=== PATIENT | female | born 1950 | race Hispanic/Latino ===

== ENCOUNTER 2018-11-06 19:01 | Emergency (ER) | payer MEDICARE ==
--- NOTE | 2018-11-06 20:39 | Emergency Department Report ---
ED General Adult HPI - General Chief complaint: Skin Rash Stated complaint: BLISTERS (L) SIDE BODY Time Seen by Provider: 11/06/18 19:54 Source: patient Mode of arrival: Ambulatory Limitations: No Limitations - History of Present Illness Initial comments: 68-year-old female presents to the emergency department with her caregiver reports a rash on her arm which showed up today. Yesterday Dr. oliver states the patient was very pruritic in that region and today when she came to deliver her care. She noticed the development of a topical erythematous rash with a couple of blisters. Denies any fevers, unsure about the pain as patient cannot communicate pain. Was very well. There is no new detergents or perfumes utilize no new garments given known medications precipitate the development of this rash. -: Gradual Location: upper extremity Radiation: non-radiation Severity scale (0 -10): 0 Consistency: constant Improves with: none Worsens with: none Associated Symptoms: rash. denies: confusion, cough, diaphoresis, loss of appetite, malaise, nausea/vomiting, shortness of breath, syncope, weakness Treatments Prior to Arrival: none - Related Data Previous Rx's Medication Instructions Recorded Last Taken Type Gentamicin 0.3% Ophth Soln 2 drops OP Q4H 5 Days bottle 06/02/14 Unknown Rx ALBUTEROL Inhaler (OR & NICU) 2 puff IH QID PRN #1 inhalation 03/01/15 Unknown Rx [ProAir HFA Inhaler] Azithromycin [Zithromax Z-TAVON] 250 mg PO DAILY #6 tablet 03/01/15 Unknown Rx HYDROcodone/APAP 5-325 [[place] 1 each PO Q6HR PRN #20 tablet 09/19/15 Unknown Rx 5/325] Betamethasone/Propylene Glyc 1 gm TP BID #50 oint...g. 11/06/18 Unknown Rx [Diprolene 0.05% Ointment] Mupirocin [Bactroban 2%] 15 applic TP TID #15 gm 11/06/18 Unknown Rx hydrOXYzine HCL [Atarax] 25 mg PO Q6HR PRN #20 tablet 11/06/18 Unknown Rx predniSONE [Deltasone] 20 mg PO QDAY #5 tab 11/06/18 Unknown Rx Allergies Allergy/AdvReac Type Severity Reaction Status Date / Time metronidazole Allergy Rash Verified 11/06/18 19:04 ED Review of Systems ROS: Stated complaint: BLISTERS (L) SIDE BODY Other details as noted in HPI Constitutional: denies: chills, fever Eyes: denies: eye pain, eye discharge, vision change ENT: denies: ear pain, throat pain Respiratory: denies: cough, shortness of breath, wheezing Cardiovascular: denies: chest pain, palpitations Endocrine: no symptoms reported Gastrointestinal: denies: abdominal pain, nausea, diarrhea Genitourinary: denies: urgency, dysuria, discharge Musculoskeletal: denies: back pain, joint swelling, arthralgia Skin: rash. denies: lesions Neurological: denies: headache, weakness, paresthesias Psychiatric: denies: anxiety, depression Hematological/Lymphatic: denies: easy bleeding, easy bruising ED Past Medical Hx - Past Medical History Hx Hypertension: No Hx CVA: No Hx Heart Attack/AMI: No Hx Congestive Heart Failure: No Hx Diabetes: No Hx Deep Vein Thrombosis: No Hx Pulmonary Embolism: No Hx GERD: No Hx Liver Disease: No Hx Renal Disease: No Hx Sickle Cell Disease: No Hx Arthritis: No Hx Headaches / Migraines: No Hx Seizures: No Hx Kidney Stones: No Hx Psychiatric Treatment: No Hx Asthma: No Hx COPD: No Hx Tuberculosis: No Hx Dementia: No Hx HIV: No Additional medical history: Cerebral palsy, hypoxia, depression, mild MR, personality disorder - Surgical History Hx Coronary Stent: No Hx Open Heart Surgery: No Hx Pacemaker: No Hx Internal Defibrillator: No Hx Cholecystectomy: No Hx Appendectomy: No Hx Breast Surgery: No - Social History Smoking Status: Never Smoker Substance Use Type: None - Medications Home Medications: Home Medications Medication Instructions Recorded Confirmed Last Taken Type Gentamicin 0.3% Ophth Soln 2 drops OP Q4H 5 Days bottle 06/02/14 Unknown Rx ALBUTEROL Inhaler (OR & NICU) 2 puff IH QID PRN #1 inhalation 03/01/15 Unknown Rx [ProAir HFA Inhaler] Azithromycin [Zithromax Z-TAVON] 250 mg PO DAILY #6 tablet 03/01/15 Unknown Rx HYDROcodone/APAP 5-325 [[place] 1 each PO Q6HR PRN #20 tablet 09/19/15 Unknown Rx 5/325] Betamethasone/Propylene Glyc 1 gm TP BID #50 oint...g. 11/06/18 Unknown Rx [Diprolene 0.05% Ointment] Mupirocin [Bactroban 2%] 15 applic TP TID #15 gm 11/06/18 Unknown Rx hydrOXYzine HCL [Atarax] 25 mg PO Q6HR PRN #20 tablet 11/06/18 Unknown Rx predniSONE [Deltasone] 20 mg PO QDAY #5 tab 11/06/18 Unknown Rx ED Physical Exam - General Limitations: No Limitations General appearance: alert, in no apparent distress - Head Head exam: Present: atraumatic, normocephalic - Eye Eye exam: Present: normal appearance, PERRL Pupils: Present: normal accommodation - ENT ENT exam: Present: mucous membranes moist - Neck Neck exam: Present: normal inspection - Respiratory Respiratory exam: Present: normal lung sounds bilaterally. Absent: respiratory distress - Cardiovascular Cardiovascular Exam: Present: regular rate, normal rhythm. Absent: systolic murmur, diastolic murmur, rubs, gallop - GI/Abdominal GI/Abdominal exam: Present: soft, normal bowel sounds - Extremities Exam Extremities exam: Present: normal inspection, full ROM, normal capillary refill. Absent: tenderness - Back Exam Back exam: Present: normal inspection, full ROM. Absent: CVA tenderness (R), CVA tenderness (L), paraspinal tenderness, vertebral tenderness - Neurological Exam Neurological exam: Present: alert, oriented X3, CN II-XII intact, normal gait - Psychiatric Psychiatric exam: Present: normal affect, normal mood - Skin Skin exam: Present: warm, dry, intact, normal color. Absent: rash ED Course Vital Signs 11/06/18 19:04 Temperature 97.7 F Pulse Rate 80 Blood Pressure 134/55 O2 Sat by Pulse 97 Oximetry Critical care attestation.: If time is entered above; I have spent that time in minutes in the direct care of this critically ill patient, excluding procedure time. ED Disposition Clinical Impression: Rash Disposition: DC-01 TO HOME OR SELFCARE Is pt being admited?: No Does the pt Need Aspirin: No Condition: Stable Instructions: Contact Dermatitis (ED) Prescriptions: Betamethasone/Propylene Glyc [Diprolene 0.05% Ointment] 1 gm TP BID #50 oint ...g. hydrOXYzine HCL [Atarax] 25 mg PO Q6HR PRN #20 tablet PRN Reason: Itching Mupirocin [Bactroban 2%] 15 applic TP TID #15 gm predniSONE [Deltasone] 20 mg PO QDAY #5 tab Referrals: [facility] [Provider Group] - 3-5 Days
== END 2018-11-06 20:53 | disposition home or self-care (01) ==
LOC: ED 19:01
DX: R21 Rash and other nonspecific skin eruption (principal)
CPT/HCPCS: 99281

== ENCOUNTER 2019-02-03 13:39 | Emergency (ER) | payer MEDICARE ==
--- NOTE | 2019-02-03 14:12 | Emergency Department Report ---
ED Fall HPI - General Chief Complaint: Fall Stated Complaint: GROUND LEVEL FALL Time Seen by Provider: 02/03/19 14:07 Source: patient, EMS Mode of arrival: Stretcher - History of Present Illness Initial Comments: Patient is 68 years old female with history of cerebral palsy, bedridden. Patient brought to the emergency room via EMS for evaluation of a fall that happened just prior to coming to the ER. Patient caregiver they stated that patient fell out of bed. Patient is not communicating due to her mental disability but she is pointing to her left knee. MD Complaint: fall -: This morning Fall From: out of bed Fall Witnessed: yes, by living facility s Place [facility] Occ[facility] Loss of Consciousness: none Prolonged Down Time?: no Symptoms Prior to Fall: none Location - Extremities: Left: Knee - Related Data Previous Rx's Medication Instructions Recorded Last Taken Type Gentamicin 0.3% Ophth Soln 2 drops OP Q4H 5 Days bottle 06/02/14 Unknown Rx ALBUTEROL Inhaler (OR & NICU) 2 puff IH QID PRN #1 inhalation 03/01/15 Unknown Rx [ProAir HFA Inhaler] Azithromycin [Zithromax Z-TAVON] 250 mg PO DAILY #6 tablet 03/01/15 Unknown Rx HYDROcodone/APAP 5-325 [[place] 1 each PO Q6HR PRN #20 tablet 09/19/15 Unknown Rx 5/325] Betamethasone/Propylene Glyc 1 gm TP BID #50 oint...g. 11/06/18 Unknown Rx [Diprolene 0.05% Ointment] Mupirocin [Bactroban 2%] 15 applic TP TID #15 gm 11/06/18 Unknown Rx hydrOXYzine HCL [Atarax] 25 mg PO Q6HR PRN #20 tablet 11/06/18 Unknown Rx predniSONE [Deltasone] 20 mg PO QDAY #5 tab 11/06/18 Unknown Rx Allergies Allergy/AdvReac Type Severity Reaction Status Date / Time metronidazole Allergy Rash Verified 11/06/18 19:04 ED Review of Systems ROS: Stated complaint: GROUND LEVEL FALL Other details as noted in HPI Comment: All other systems reviewed and negative Constitutional: denies: chills, fever Respiratory: denies: cough, orthopnea, shortness of breath Cardiovascular: denies: chest pain Gastrointestinal: denies: abdominal pain, nausea, vomiting Musculoskeletal: denies: back pain ED Past Medical Hx - Past Medical History Previous Medical History?: Yes Hx Hypertension: No Hx CVA: No Hx Heart Attack/AMI: No Hx Congestive Heart Failure: No Hx Diabetes: No Hx Deep Vein Thrombosis: No Hx Pulmonary Embolism: No Hx GERD: No Hx Liver Disease: No Hx Renal Disease: No Hx Sickle Cell Disease: No Hx Arthritis: No Hx Headaches / Migraines: No Hx Seizures: No Hx Kidney Stones: No Hx Psychiatric Treatment: No Hx Asthma: No Hx COPD: No Hx Tuberculosis: No Hx Dementia: No Hx HIV: No Additional medical history: Cerebral palsy, hypoxia, depression, mild MR, personality disorder - Surgical History Past Surgical History?: Yes Hx Coronary Stent: No Hx Open Heart Surgery: No Hx Pacemaker: No Hx Internal Defibrillator: No Hx Cholecystectomy: No Hx Appendectomy: No Hx Breast Surgery: No - Social History Smoking Status: Never Smoker Substance Use Type: None - Medications Home Medications: Home Medications Medication Instructions Recorded Confirmed Last Taken Type Gentamicin 0.3% Ophth Soln 2 drops OP Q4H 5 Days bottle 06/02/14 Unknown Rx ALBUTEROL Inhaler (OR & NICU) 2 puff IH QID PRN #1 inhalation 03/01/15 Unknown Rx [ProAir HFA Inhaler] Azithromycin [Zithromax Z-TAVON] 250 mg PO DAILY #6 tablet 03/01/15 Unknown Rx HYDROcodone/APAP 5-325 [[place] 1 each PO Q6HR PRN #20 tablet 09/19/15 Unknown Rx 5/325] Betamethasone/Propylene Glyc 1 gm TP BID #50 oint...g. 11/06/18 Unknown Rx [Diprolene 0.05% Ointment] Mupirocin [Bactroban 2%] 15 applic TP TID #15 gm 11/06/18 Unknown Rx hydrOXYzine HCL [Atarax] 25 mg PO Q6HR PRN #20 tablet 11/06/18 Unknown Rx predniSONE [Deltasone] 20 mg PO QDAY #5 tab 11/06/18 Unknown Rx ED Physical Exam - General Limitations: Physical Limitation, Other General appearance: alert, in no apparent distress - Head Head exam: Present: atraumatic, normocephalic, normal inspection - Eye Eye exam: Present: normal appearance, PERRL - ENT ENT exam: Present: normal exam, normal orophraynx, mucous membranes moist - Neck Neck exam: Present: normal inspection. Absent: tenderness, meningismus - Respiratory Respiratory exam: Present: normal lung sounds bilaterally. Absent: respiratory distress, wheezes, rales, rhonchi, decreased breath sounds, prolonged expiratory - Cardiovascular Cardiovascular Exam: Present: regular rate, normal rhythm, normal heart sounds - GI/Abdominal GI/Abdominal exam: Present: soft, normal bowel sounds. Absent: distended, tenderness, guarding, rebound, rigid, organomegaly, mass, bruit, pulsatile mass, hernia - Extremities Exam Extremities exam: Present: normal capillary refill - Expanded Lower Extremity Exam Left Knee exam: Present: tenderness, swelling. Absent: abrasion, laceration, ecchymosis, deformity, crepidus, dislocation, erythema, effusion, pain w/ pronation/supination, posterior draw sign Neuro vascular tendon exam: Present: no vascular compromise - Neurological Exam Neurological exam: Present: alert - Skin Skin exam: Present: warm, intact, normal color ED Course Vital Signs 02/03/19 02/03/19 02/03/19 13:59 14:55 14:57 Temperature 98.0 F Pulse Rate 87 80 Respiratory 16 16 16 Rate Blood Pressure 124/64 Blood Pressure 106/61 [Left] O2 Sat by Pulse 97 96 96 Oximetry ED Medical Decision Making - Radiology Data Radiology results: report reviewed Referring Physician: SORAIDA DESIR Patient Name: NO MAGALLON Date of : 1950 Sex: Female Report Date: 2019-02-03 Report Status: Finalized Findings [address] [address] XRay Report Signed Patient: NO MAGALLON MR#: [id number] : 1950 Acct:[id number] Age/Sex: 68 / F ADM Date: 02/03/19 Loc: ED Attending Dr: Ordering Physician: SORAIDA DESIR Date of Service: 02/03/19 Procedure(s): XR knee 1-2V LT Accession Number(s): [id number] cc: SORAIDA DESIR Fluoro Time In Minutes: PROCEDURE: XR KNEE 1-2V LT HISTORY: FALL FINDINGS: AP and lateral views of the left knee were acquired. There is deformity of the distal femur which likely represents an old healed fracture of the distal femur. The distal femur has healed with approximately 1.7 cm anterior displacement and 1.0 cm medial displacement with regard to the proximal femoral diaphysis. The distal femur lies in posterior and lateral angulation. There is also deformity of the proximal tibial metaphysis and the fibular head consistent with old, healed fractures. No definite acute fracture is seen. IMPRESSION: Old healed fractures of distal femur proximal tibia and proximal fibula. No definite acute fracture is seen This document is electronically signed by Bayron Medina MD., February 03 2019 03:31:47 PM ET Transcribed By: ISABELLE Dictated By: BAYRON MEDINA MD Electronically Authenticated By: BAYRON MEDINA MD Signed Date/Time: 02/03/19 1533 Referring Physician: SORAIDA DESIR Patient Name: NO MAGALLON Date of : 1950 Sex: Female Report Date: 2019-02-03 Report Status: Finalized Findings [facility] [address] [place] [address] Cat Scan Report Signed Patient: NO MAGALLON MR#: [id number] : 1950 Acct:[id number] Age/Sex: 68 / F ADM Date: 02/03/19 Loc: ED Attending Dr: Ordering Physician: SORAIDA DESIR Date of Service: 02/03/19 Procedure(s): CT head/brain wo con Accession Number(s): [id number] cc: SORAIDA DESIR PROCEDURE: CT HEAD/BRAIN WO CON TECHNIQUE: Computerized tomography of the head was performed without contrast material. CT DOSE LENGTH PRODUCT: 983.3 mGycm HISTORY: FALL, LEFT KNEE PAIN COMPARISONS: None . FINDINGS: Skull and scalp: Normal . Paranasal sinuses: Mucosal thickening in the bilateral maxillary, ethmoid, and sphenoid sinuses is noted without air-fluid levels. . Ventricles and subarachnoid spaces: Normal . Cerebrum: No evidence of hemorrhage, acute infarction or mass . There is a large low-density area in the high left parietal region and the centrum semiovale. There is is probably due to remote infarct/encephalomalacia but could be a large arachnoid cyst. There is midline shift to the right measuring 6 mm. It cannot be further evaluated on this exam. Cerebellum and brainstem: No evidence of hemorrhage, acute infarction or mass . Vasculature: Normal . Other: None . ASPECTS: 10 IMPRESSION: Remote low-density focus in the high left parietal region which cannot be further differentiated on this exam. MRI would be of further help. This is either encephalomalacia related to remote infarct or could be a large arachnoid cyst. It is causing midline shift to the right of 6 mm. This document is electronically signed by Eva Staton MD., February 03 2019 03:35:01 PM ET Transcribed By: [facility] Dictated By: EVA STATON MD Electronically Authenticated By: EVA STATON MD Signed Date/Time: 02/03/19 1536 DD/ 1407 TD/TT: 02/03/19 1514 DD/ 1428 TD/TT: 02/03/19 1428 - Medical Decision Making Patient is 68 years old female with history of cerebral palsy, bedridden. Patient brought to the emergency room via EMS for evaluation of a fall that happened just prior to coming to the ER. Patient caregiver they stated that patient fell out of bed. Patient is not communicating due to her mental disability but she is pointing to her left knee. CT brain is negative for acute finding. X-ray left knee show an old healed distal femur fracture with no acute findings. Critical care attestation.: If time is entered above; I have spent that time in minutes in the direct care of this critically ill patient, excluding procedure time. ED Disposition Clinical Impression: Fall, Contusion Disposition: DC-01 TO HOME OR SELFCARE Is pt being admited?: No Condition: Stable Instructions: Fall Prevention (ED) Referrals: PRIMARY CARE, [Primary Care Provider] - 3-5 Days
--- NOTE | 2019-02-03 15:33 | XRay Report ---
PROCEDURE: XR KNEE 1-2V LT HISTORY: FALL FINDINGS: AP and lateral views of the left knee were acquired. There is deformity of the distal femur which likely represents an old healed fracture of the distal femur. The distal femur has healed with approximately 1.7 cm anterior displacement and 1.0 cm medial displacement with regard to the proxima l femoral diaphysis. The distal femur lies in posterior and lateral angulation. There is also deformity of the proximal tibial metaphysis and the fibular head consistent with old, h ealed fractures. No definite acute fracture is seen. IMPRESSION: Old healed fractures of distal femur proximal tibia and proximal fibula. No definite acut e fracture is seen This document is electronically signed by Bayron Medina MD., February 03 2019 03:31:47 PM ET
--- NOTE | 2019-02-03 15:36 | Cat Scan Report ---
PROCEDURE: CT HEAD/BRAIN WO CON TECHNIQUE: Computerized tomography of the head was performed without contrast material. CT DOSE LENGTH PRODUCT: 983.3 mGycm HISTORY: FALL, LEFT KNEE PAIN COMPARISONS: None . FINDINGS: Skull and scalp: Normal . Paranasal sinuses: Mucosal thickening in the bilateral maxillary, ethmoid, and sphenoid sinuses is n oted without air-fluid levels. . Ventricles and subarachnoid spaces: Normal . Cerebrum: No evidence of hemorrhage, acute infarction or mass . There is a large low-density area in the high left parietal region and the centrum semiovale. There is is probably due to remote infarct/ encephalomalacia but could be a large arachnoid cyst. There is midline shift to the right measuring 6 mm. It cannot be further evaluated on this exam. Cerebellum and brainstem: No evidence of hemorrhage, acute infarction or mass . Vasculature: Normal . Other: None . ASPECTS: 10 IMPRESSION: Remote low-density focus in the high left parietal region which cannot be further differe ntiated on this exam. MRI would be of further help. This is either encephalomalacia related to remote infarct or could be a large arachnoid cyst. It is causing midline shift to the right of 6 mm. This document is electronically signed by Eva Staton MD., February 03 2019 03:35:01 PM ET
[2019-02-03 18:37] VITALS: BP 108/74
== END 2019-02-03 18:00 | disposition home or self-care (01) ==
LOC: ED 13:39
DX: S80.02XA Contusion of left knee, initial encounter (principal); G80.9 Cerebral palsy, unspecified; Z74.01 Bed confinement status; Z88.8 Allergy status to other drugs, medicaments and biological substances; W06.XXXA Fall from bed, initial encounter; Y93.89 Activity, other specified; Y92.128 Other place in nursing home as the place of occurrence of the external cause; Y99.8 Other external cause status
CPT/HCPCS: 70450; 99284

== ENCOUNTER 2019-03-30 11:05 | Emergency (ER) | payer MEDICARE ==
--- NOTE | 2019-03-30 11:29 | Emergency Department Report ---
Blank Doc - Documentation Documentation: 68 y/o assisted living patient Ms. Barr presents with care providers reporting that director of philanthropy thinks she may have fallen between bed last night (never made it to floor was caught between bed). Exam shows redness and petechiae to hand Plan Xray to swollen hand and wrist labs due to possible prolonged strangulation of hand between rail given the redness and petechaie also cbc for possoble infection given previous blister history.
--- NOTE | 2019-03-30 12:30 | Emergency Department Report ---
ED General Adult HPI - General Chief complaint: Extremity Injury, Upper Stated complaint: R HAND RED/SWOLLEN Time Seen by Provider: 03/30/19 11:21 Source: family Mode of arrival: Wheelchair Limitations: Altered Mental Status, Physical Limitation - History of Present Illness Initial comments: Pt is a 68 yo female brought in by her caregiver who [facility] with c/o right hand and wrist pain, edema, and erythema that occurred this morning. The caregiver states that she was told by a nurse that she slid in between the bed railing. she states the nurse states she did not fall all the way to the ground. They were not sure how long she had been in between the bed and railing. caregiver states she has also noticed increased swelling of the LLE over the last couple of days. she states she has chronic swelling of the LE but that the left appears larger than the right now. pt has a PMHx of seizure disorder and spastic triplegia. pt is non verbal. - Related Data Previous Rx's Medication Instructions Recorded Last Taken Type Gentamicin 0.3% Ophth Soln 2 drops OP Q4H 5 Days bottle 06/02/14 Unknown Rx ALBUTEROL Inhaler (OR & NICU) 2 puff IH QID PRN #1 inhalation 03/01/15 Unknown Rx [ProAir HFA Inhaler] Azithromycin [Zithromax Z-TAVON] 250 mg PO DAILY #6 tablet 03/01/15 Unknown Rx HYDROcodone/APAP 5-325 [[place] 1 each PO Q6HR PRN #20 tablet 09/19/15 Unknown Rx 5/325] Betamethasone/Propylene Glyc 1 gm TP BID #50 oint...g. 11/06/18 Unknown Rx [Diprolene 0.05% Ointment] hydrOXYzine HCL [Atarax] 25 mg PO Q6HR PRN #20 tablet 11/06/18 Unknown Rx predniSONE [Deltasone] 20 mg PO QDAY #5 tab 11/06/18 Unknown Rx Mupirocin [Bactroban 2% OINT] 15 applic TP TID #15 gm 03/30/19 Unknown Rx cephALEXin [Keflex] 500 mg PO QID 7 Days #28 cap 03/30/19 Unknown Rx Allergies Allergy/AdvReac Type Severity Reaction Status Date / Time metronidazole Allergy Rash Verified 03/30/19 11:07 ED Review of Systems ROS: Stated complaint: R HAND RED/SWOLLEN Other details as noted in HPI Comment: All other systems reviewed and negative ED Past Medical Hx - Past Medical History Hx Hypertension: No Hx CVA: No Hx Heart Attack/AMI: No Hx Congestive Heart Failure: No Hx Diabetes: No Hx Deep Vein Thrombosis: No Hx Pulmonary Embolism: No Hx GERD: No Hx Liver Disease: No Hx Renal Disease: No Hx Sickle Cell Disease: No Hx Arthritis: No Hx Headaches / Migraines: No Hx Seizures: No Hx Kidney Stones: No Hx Psychiatric Treatment: No Hx Asthma: No Hx COPD: No Hx Tuberculosis: No Hx Dementia: No Hx HIV: No Additional medical history: Cerebral palsy, hypoxia, depression, mild MR, personality disorder - Surgical History Hx Coronary Stent: No Hx Open Heart Surgery: No Hx Pacemaker: No Hx Internal Defibrillator: No Hx Cholecystectomy: No Hx Appendectomy: No Hx Breast Surgery: No - Social History Smoking Status: Never Smoker Substance Use Type: Prescribed - Medications Home Medications: Home Medications Medication Instructions Recorded Confirmed Last Taken Type Gentamicin 0.3% Ophth Soln 2 drops OP Q4H 5 Days bottle 06/02/14 Unknown Rx ALBUTEROL Inhaler (OR & NICU) 2 puff IH QID PRN #1 inhalation 03/01/15 Unknown Rx [ProAir HFA Inhaler] Azithromycin [Zithromax Z-TAVON] 250 mg PO DAILY #6 tablet 03/01/15 Unknown Rx HYDROcodone/APAP 5-325 [[place] 1 each PO Q6HR PRN #20 tablet 09/19/15 Unknown Rx 5/325] Betamethasone/Propylene Glyc 1 gm TP BID #50 oint...g. 11/06/18 Unknown Rx [Diprolene 0.05% Ointment] hydrOXYzine HCL [Atarax] 25 mg PO Q6HR PRN #20 tablet 11/06/18 Unknown Rx predniSONE [Deltasone] 20 mg PO QDAY #5 tab 11/06/18 Unknown Rx Mupirocin [Bactroban 2% OINT] 15 applic TP TID #15 gm 03/30/19 Unknown Rx cephALEXin [Keflex] 500 mg PO QID 7 Days #28 cap 03/30/19 Unknown Rx ED Physical Exam - General Limitations: Altered Mental Status, Physical Limitation General appearance: alert, in no apparent distress - Head Head exam: Present: atraumatic, normocephalic - Eye Eye exam: Present: normal appearance, PERRL - ENT ENT exam: Present: mucous membranes moist - Respiratory Respiratory exam: Present: normal lung sounds bilaterally. Absent: respiratory distress, wheezes, rales, rhonchi, stridor, chest wall tenderness, accessory muscle use, decreased breath sounds, prolonged expiratory - Cardiovascular Cardiovascular Exam: Present: regular rate, normal rhythm, normal heart sounds. Absent: systolic murmur, diastolic murmur, rubs, gallop - GI/Abdominal GI/Abdominal exam: Present: soft, normal bowel sounds. Absent: distended, tenderness, guarding, rebound, rigid - Extremities Exam Extremities exam: Present: pedal edema (non pitting bilateral LE edema, left greater than right ), other (bilateral hands in contractured position, chronic per caregiver, FROM of the right fingers, right hand, right wrist, right elbow, and right shoulder, 2+ radial pulse, 2+ pedal pulse bilaterally by doppler) - Neurological Exam Neurological exam: Present: alert - Skin Skin exam: Present: warm, other (erythema present to the right hand and wrist with small area of fluid filled blisters present on the medial surface of the right forearm, small amount of petchiae to the dorsum of the right hand, no ecchymosis) ED Course Vital Signs 03/30/19 03/30/19 11:22 13:41 Temperature 97.4 F L Pulse Rate 92 H 99 H Respiratory 18 18 Rate Blood Pressure 130/86 Blood Pressure 149/75 [Left] O2 Sat by Pulse 98 99 Oximetry ED Medical Decision Making - Lab Data Result diagrams: 03/30/19 12:27 03/30/19 12:27 - Radiology Data Radiology results: report reviewed PROCEDURE: VL VENOUS DUPLEX LE LT TECHNIQUE: Grayscale, color flow and Doppler tracings obtained of the veins of the lower extremities bilaterally, with compression and augmentation. HISTORY: LLE edema COMPARISONS: No priors FINDINGS: There is no evidence of deep venous thrombosis in the lower extremities bilaterally. The veins are patent and compressible. IMPRESSION: No evidence is seen of deep venous thrombosis in the lower extremities bilaterally.. This document is electronically signed by Cristóbal Olivo MD., March 30 2019 02:19:19 PM ET Transcribed By: SEE Dictated By: CRISTÓBAL OLIVO MD Electronically Authenticated By: CRISTÓBAL OLIVO MD Signed Date/Time: 03/30/19 1421 PROCEDURE: CT CERVICAL SPINE WO CON TECHNIQUE: Computerized tomography of the cervical spine was performed from the skull base to T1 without contrast material. CT DOSE LENGTH PRODUCT: 418.9 mGycm HISTORY: fall in between bed at [facility] COMPARISONS: None . FINDINGS: Unenhanced CT of the cervical spine was performed and data was reformatted into sagittal and coronal planes. No fracture is seen in the cervical spine. There are bulky anterior osteophytes at all levels from C2-C3 to C7-T1. There is partial opacification of the right mastoid air cells. The left mastoid air cells appear clear. The pulmonary apices appear clear. IMPRESSION: No fracture is seen in the cervical spine This document is electronically signed by Bayron Medina MD., March 30 2019 03:46:45 PM ET Transcribed By: ISABELLE Dictated By: BAYRON MEDINA MD Electronically Authenticated By: BAYRON MEDINA MD Signed Date/Time: 03/30/19 1548 PROCEDURE: CT HEAD/BRAIN WO CON TECHNIQUE: Computerized tomography of the head was performed without contrast material. CT DOSE LENGTH PRODUCT: 2334.3 mGycm HISTORY: fall in between bed at [facility] COMPARISONS: None . FINDINGS: Unenhanced CT of the brain was performed and compared to the prior examination of February 03, 2019. These images demonstrate no acute intracranial hemorrhage. There is a fluid density region of the left superior frontoparietal area, unchanged from prior exam approximately 6.6 x 5.3 cm. this could represent encephalomalacia from old infarct. It does, however, appear to result in [id number]-zwoti midline shift of approximately 0.6 cm, unchanged, and could therefore represent arachnoid cyst. There is partial opacification of mastoid air cells bilaterally, right more than left. There is sinus mucosal thickening without acute sinusitis. The bony calvarium appears intact. IMPRESSION: No acute intracranial hemorrhage This document is electronically signed by Bayron Medina MD., March 30 2019 02:50:03 PM ET Transcribed By: ISABELLE Dictated By: BAYRON MEDINA MD Electronically Authenticated By: BAYRON MEDINA MD Signed Date/Time: 03/30/19 1451 PROCEDURE: XR FOREARM RT, XR HAND 2V RT TECHNIQUE: Right hand and forearm radiographs, 2 views. HISTORY: hand pain and swelling COMPARISONS: None currently available. FINDINGS: RIGHT HAND: Radial-3rd/4th metacarpal internal fixation hardware and fixation hardware at the carpal-3rd metacarpal demonstrates surrounding lucencies around the hardware which may represent loosening. No dislodgment identified. Deformity and ankylosis of the carpal bones identified. Mild joint space narrowing at the carpal metacarpal articulations identified. Narrowing and sclerosis at the metacarpal phalangeal joints. There is no acute fracture. There is no evidence for healing fracture. There is no acute dislocation. There is no cortical destruction to suggest osteomyelitis. There are no suspicious osseous lesions. RIGHT FOREARM: Osteolysis of the distal ulna. Radius and carpal fusion identified. There is no acute fracture. There is no evidence for healing fracture. There is no acute dislocation. There is no cortical destruction to suggest osteomyelitis. There are no suspicious osseous lesions. IMPRESSION: * Arthrodesis hardware in the wrist and forearm extending to the metacarpal regions demonstrates surrounding lucencies which may represent loosening. No dislodgment. 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 This document is electronically signed by Edwin Sexton MD., March 30 2019 12:52:50 PM ET Transcribed By: TYM Dictated By: EDWIN SEXTON MD Electronically Authenticated By: EDWIN SEXTON MD Signed Date/Time: 03/30/19 1254 PROCEDURE: XR FOREARM RT, XR HAND 2V RT TECHNIQUE: Right hand and forearm radiographs, 2 views. HISTORY: hand pain and swelling COMPARISONS: None currently available. FINDINGS: RIGHT HAND: Radial-3rd/4th metacarpal internal fixation hardware and fixation hardware at the carpal-3rd metacarpal demonstrates surrounding lucencies around the hardware which may represent loosening. No dislodgment identified. Deformity and ankylosis of the carpal bones identified. Mild joint space narrowing at the carpal metacarpal articulations identified. Narrowing and sclerosis at the metacarpal phalangeal joints. There is no acute fracture. There is no evidence for healing fracture. There is no acute dislocation. There is no cortical destruction to suggest osteomyelitis. There are no suspicious osseous lesions. RIGHT FOREARM: Osteolysis of the distal ulna. Radius and carpal fusion identified. There is no acute fracture. There is no evidence for healing fracture. There is no acute dislocation. There is no cortical destruction to suggest osteomyelitis. There are no suspicious osseous lesions. IMPRESSION: * Arthrodesis hardware in the wrist and forearm extending to the metacarpal regions demonstrates surrounding lucencies which may represent loosening. No dislodgment. 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 This document is electronically signed by Edwin Sexton MD., March 30 2019 12:52:50 PM ET Transcribed By: TYM Dictated By: EDWIN SEXTON MD Electronically Authenticated By: EDWIN SEXTON MD Signed Date/Time: 03/30/19 5604 - Medical Decision Making Pt is a 68 yo female brought in by her caregiver who [facility] with c/o right hand and wrist pain, edema, and erythema that occurred this morning. The caregiver states that she was told by a nurse that she slid in between the bed railing. she states the nurse states she did not fall all the way to the ground. They were not sure how long she had been in between the bed and railing. caregiver states she has also noticed increased swelling of the LLE over the last couple of days. she states she has chronic swelling of the LE but that the left appears larger than the right now. pt has a PMHx of seizure disorder and spastic triplegia. pt is non verbal. VL VENOUS DUPLEX LE LT: no acute process. CT head and CT cervical spine no acute process. XR right forearm /hand: * Arthrodesis hardware in the wrist and forearm extending to the metacarpal regions demonstrates surrounding lucencies which may represent loosening. No dislodgment. 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 Arthritic changes in the hand. on exam pt has edema, erythema, and blistering present to the right hand/forearm, pt has chronic contracture of hand, 2+ radial pulses. Dr. Kwan evaluated patient and believes most likely due to a reperfusion after patient had been laying on it and once moved off of it allowed blood to flow and which allowed for edema, advised RICE therapy and may give keflex to prevent skin infection. also given mupirocen cream. discussed with caregiver to please follow up with a primary care doctor in the next 2-3 days. give medication as prescribed. please use elevation, rest, and may place ice for 15 minutes at a time. return to the emergency room for any new or worsening symptoms or signs of infection. Critical care attestation.: If time is entered above; I have spent that time in minutes in the direct care of this critically ill patient, excluding procedure time. ED Disposition Clinical Impression: Edema of upper extremity, Erythema of upper extremity, Leg edema Injury of right upper arm Qualifiers: Encounter type: initial encounter Qualified Code(s): S49.91XA - Unspecified injury of right shoulder and upper arm, initial encounter Disposition: TO HOME OR SELFCARE Is pt being admited?: No Does the pt Need Aspirin: No Condition: Stable Instructions: Leg Edema (ED) Additional Instructions: please follow up with a primary care doctor in the next 2-3 days. give medication as prescribed. please use elevation, rest, and may place ice for 15 minutes at a time. return to the emergency room for any new or worsening symptoms or signs of infection. Prescriptions: Mupirocin [Bactroban 2% OINT] 15 applic TP TID #15 gm cephALEXin [Keflex] 500 mg PO QID 7 Days #28 cap Referrals: ANALISA HUGO MD [Primary Care Provider] - 2-3 Days Time of Disposition: 15:59 Print Language: MALDIVIAN
--- NOTE | 2019-03-30 12:54 | XRay Report ---
PROCEDURE: XR FOREARM RT, XR HAND 2V RT TECHNIQUE: Right hand and forearm radiographs, 2 views. HISTORY: hand pain and swelling COMPARISONS: None currently available. FINDINGS: RIGHT HAND: Radial-3rd/4th metacarpal internal fixation hardware and fixation hardware at the carpal-3rd metacarp al demonstrates surrounding lucencies around the hardware which may represent loosening. No dislodgme nt identified. Deformity and ankylosis of the carpal bones identified. Mild joint space narrowing at the carpal metacarpal articulations identified. Narrowing and sclerosis at the metacarpal phalangeal joints. There is no acute fracture. There is no evidence for healing fracture. There is no acute dislocation. There is no cortical destruction to suggest osteomyelitis. There are no suspicious osseous lesions. RIGHT FOREARM: Osteolysis of the distal ulna. Radius and carpal fusion identified. There is no acute fracture. There is no evidence for healing fracture. There is no acute dislocation. There is no cortical destruction to suggest osteomyelitis. There are no suspicious osseous lesions. IMPRESSION: * Arthrodesis hardware in the wrist and forearm extending to the metacarpal regions demonstrates farzad rounding lucencies which may represent loosening. No dislodgment. 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 This document is electronically signed by Edwin Wheeler MD., March 30 2019 12:52:50 PM ET
[2019-03-30 13:05] LABS: Basophils % (Auto) 0.2 % (0.0-1.8); Hematocrit 48.6 % (30.3-42.9); Hemoglobin 16.1 gm/dl (10.1-14.3); Lymphocytes # (Auto) 0.9 K/mm3 (1.2-5.4); Lymphocytes % (Auto) 7.9 % (13.4-35.0); Mean Corpuscular HGB Conc 33 % (30-34); Mean Corpuscular Volume 97 fl (79-97); Monocytes # (Auto) 1.4 K/mm3 (0.0-0.8); Monocytes % (Auto) 12.4 % (0.0-7.3); Platelet Count 263 K/mm3 (140-440); Red Blood Count 5.04 M/mm3 (3.65-5.03); Red Cell Distribution Width 14.2 % (13.2-15.2)
[2019-03-30 13:30] LABS: Alanine Aminotransferase 25 units/L (7-56); BUN/Creatinine Ratio 56; Blood Urea Nitrogen 28 mg/dL (7-17); Calcium 9.5 mg/dL (8.4-10.2); Hemolysis Index 5
[2019-03-30 13:42] VITALS: BP 149/75
--- NOTE | 2019-03-30 14:21 | Vascular Lab Report ---
PROCEDURE: VL VENOUS DUPLEX LE LT TECHNIQUE: Grayscale, color flow and Doppler tracings obtained of the veins of the lower extremities bilaterally, with compression and augmentation. HISTORY: LLE edema COMPARISONS: No priors FINDINGS: There is no evidence of deep venous thrombosis in the lower extremities bilaterally. The veins are patent and compressible. IMPRESSION: No evidence is seen of deep venous thrombosis in the lower extremities bilaterally.. This document is electronically signed by Cristóbal Olivo MD., March 30 2019 02:19:19 PM ET
--- NOTE | 2019-03-30 14:51 | Cat Scan Report ---
PROCEDURE: CT HEAD/BRAIN WO CON TECHNIQUE: Computerized tomography of the head was performed without contrast material. CT DOSE LENGTH PRODUCT: 2334.3 mGycm HISTORY: fall in between bed at [facility] COMPARISONS: None . FINDINGS: Unenhanced CT of the brain was performed and compared to the prior examination of February 03, 2019. These images demonstrate no acute intracranial hemorrhage. There is a fluid density region of the lef t superior frontoparietal area, unchanged from prior exam approximately 6.6 x 5.3 cm. this could repr esent encephalomalacia from old infarct. It does, however, appear to result in ztvl-oq-[id number] midline shift of approximately 0.6 cm, unchanged, and could therefore represent arachnoid cyst. There is partial opacification of mastoid air cells bilaterally, right more than left. There is sinus mucosal thickening without acute sinusitis. The bony calvarium appears intact. IMPRESSION: No acute intracranial hemorrhage This document is electronically signed by Bayron Medina MD., March 30 2019 02:50:03 PM ET
--- NOTE | 2019-03-30 15:48 | Cat Scan Report ---
PROCEDURE: CT CERVICAL SPINE WO CON TECHNIQUE: Computerized tomography of the cervical spine was performed from the skull base to T1 wit hout contrast material. CT DOSE LENGTH PRODUCT: 418.9 mGycm HIST[facility] COMPARISONS: None . FINDINGS: Unenhanced CT of the cervical spine was performed and data was reformatted into sagittal an d coronal planes. No fracture is seen in the cervical spine. There are bulky anterior osteophytes at all levels from C2 -C3 to C7-T1. There is partial opacification of the right mastoid air cells. The left mastoid air cells appear brett r. The pulmonary apices appear clear. IMPRESSION: No fracture is seen in the cervical spine This document is electronically signed by Bayron Medina MD., March 30 2019 03:46:45 PM ET
== END 2019-03-30 16:15 | disposition home or self-care (01) ==
LOC: ED 11:05
DX: S49.91XA Unspecified injury of right shoulder and upper arm, initial encounter (principal); F32.9 Major depressive disorder, single episode, unspecified; Z79.899 Other long term (current) drug therapy; Z88.8 Allergy status to other drugs, medicaments and biological substances; W18.30XA Fall on same level, unspecified, initial encounter; Y93.89 Activity, other specified; Y92.098 Other place in other non-institutional residence as the place of occurrence of the external cause; Y99.8 Other external cause status
CPT/HCPCS: 36415; 70450; 72125; 80053; 82550; 85025; 99284

== ENCOUNTER 2021-07-17 19:05 | Inpatient (IN) | payer MEDICARE, MEDICAID ==
--- NOTE | 2021-07-17 21:49 | XRay Report ---
CHEST 1 VIEW INDICATION: Altered Mental Status. COMPARISON: 03/01/2015 FINDINGS: Support devices: None. Heart: Normal. Lungs/Pleura: No acute pulmonary or pleural findings. There is mild atelectasis in the right lung bas e. There appears to be a chronic proximal right humerus fracture. IMPRESSION: 1. No acute pulmonary or pleural findings. Signer Name: Shaka Doty MD Signed: 07/17/2021 9:44 PM Workstation Name: [id number]
[2021-07-17 22:02] LABS: Basophils % (Auto) 0.4 % (0.0-1.8); Eosinophils # (Auto) 0.4 K/mm3 (0.0-0.4); Eosinophils % (Auto) 6.9 % (0.0-4.3); Hematocrit 43.7 % (30.3-42.9); Hemoglobin 14.4 gm/dl (10.1-14.3); Lymphocytes # (Auto) 0.8 K/mm3 (1.2-5.4); Lymphocytes % (Auto) 12.8 % (13.4-35.0); Mean Corpuscular HGB Conc 33 % (30-34); Mean Corpuscular Volume 96 fl (79-97); Monocytes # (Auto) 0.6 K/mm3 (0.0-0.8); Platelet Count 269 K/mm3 (140-440); Red Blood Count 4.54 M/mm3 (3.65-5.03); Red Cell Distribution Width 14.3 % (13.2-15.2)
[2021-07-17 22:12] LABS: INR 0.93 (0.87-1.13); Partial Thromboplastin Time 28.7 Sec. (24.2-36.6)
[2021-07-17 22:15] LABS: Alanine Aminotransferase 29 units/L (7-56); Albumin 4.5 g/dL (3.9-5); Blood Urea Nitrogen 14 mg/dL (7-17); Calcium 9.8 mg/dL (8.4-10.2); Hemolysis Index 5
[2021-07-17 22:21] LABS: BUN/Creatinine Ratio 70
[2021-07-17] MEDS ORDERED: HALOPERIDOL LACTATE 5 MG/1 ML INJ IM STA (22:39)
--- NOTE | 2021-07-17 23:22 | Cat Scan Report ---
CT HEAD WITHOUT CONTRAST INDICATION / CLINICAL INFORMATION: Altered Mental Status. TECHNIQUE: All CT scans at this location are performed using CT dose reduction for ALARA by means of automated e xposure control. COMPARISON: Head CT 03/30/2019 FINDINGS: HEMORRHAGE: None. EXTRA-AXIAL SPACES: Normal in size and morphology for the patient's age. VENTRICULAR SYSTEM: Normal in size and morphology for the patient's age. CEREBRAL PARENCHYMA: Large 7 cm left frontal lobe cystic mass with mass effect on left lateral ventri david is unchanged possibly representing epidermoid versus arachnoid cyst. No significant abnormality. No acute territorial infarct. MIDLINE SHIFT OR HERNIATION: None. CEREBELLUM / BRAINSTEM: No significant abnormality. ORBITS: Normal as visualized. SOFT TISSUES of HEAD: No significant abnormality. CALVARIUM: No significant abnormality. PARANASAL SINUSES / MASTOID AIR CELLS: Normal as visualized. ADDITIONAL FINDINGS: None. IMPRESSION: 1. Large 7 cm left frontal lobe cystic mass could represent arachnoid cyst or epidermoid. Recommend M RI with contrast for further characterization. 2. Moderate microangiopathy 3. No intracranial bleed. Signer Name: Jean Carlos Lutz MD Signed: 07/17/2021 11:18 PM Workstation Name: [id number]
--- NOTE | 2021-07-17 23:44 | Emergency Department Report ---
ED General Adult HPI - General Chief complaint: Altered Mental Status Stated complaint: AMS PUI?: No Time Seen by Provider: 07/17/21 20:41 Source: EMS ( EMS documentation not available at time of chart dictation ), RN notes reviewed Mode of arrival: Stretcher Limitations: Altered Mental Status, Physical Limitation - History of Present Illness Initial comments: The patient was evaluated in the emergency department for symptoms described in the history of present illness. He/she was evaluated in the context of the global COVID-19 pandemic, which necessitated consideration that the patient might be at risk for infection with the virus that causes COVID-19. Institutional protocols and algorithms that pertain to the evaluation of patients at risk for COVID-19 are in a state of rapid change based on information released by regulatory bodies including the CDC and federal and state organizations. These policies and algorithms were followed during the patient's care in the emergency department. Please note that these policies, procedures and recommendations changed on a rapid basis. Primary CARE doctor: Dr. Apurva Albrecht The patient is a 71-year-old female. She is not known to myself previously. History obtained from custom studio coordinator Ms. Bairon Maki; [phone] The patient has a history of developmental delay, intellectual disability, and cerebral palsy. She also has a history of chronic right-sided contractures. She is brought to the hospital today by emergency medical services, and with her custom studio coordinator, with a complaint of altered mental status and unresponsiveness. This happened at around 6:30 PM. Lasted for half hour. It is now resolved. As per Ms. Waddell, patient was in her usual state of health, at 6:30 PM, when she became unresponsive. There was no shaking. The patient had no preceding symptoms. The patient is now back to her baseline. As per her custom studio coordinator, there is no trauma, fall, nausea, vomiting, diarrhea, fevers or chills. Patient has not started any new medications. The patient's guardian is her personal group home at this time. She currently does not have advanced directives. 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 Current medications include Abilify, albuterol Claritin, folic acid, Dilantin, hydrocodone acetaminophen, phenobarbital, multivitamin, omeprazole, Oxytrol, calcium acetate, trazodone, vitamin D, and she is COVID-19 vaccinated. -: Sudden Consistency: now resolved Improves with: none Worsens with: none Associated Symptoms: denies other symptoms, other (Unresponsiveness. Now resolved.) - Related Data Previous Rx's Medication Instructions Recorded Last Taken Type Gentamicin 0.3% Ophth Soln 2 drops OP Q4H 5 Days bottle 06/02/14 Unknown Rx Albuterol Mdi (or & Nicu Only) 2 puff IH QID PRN #1 inhalation 03/01/15 Unknown Rx [ProAir HFA Inhaler] Azithromycin [Zithromax Z-TAVON] 250 mg PO DAILY #6 tablet 03/01/15 Unknown Rx HYDROcodone/APAP 5-325 [[place]well 1 each PO Q6HR PRN #20 tablet 09/19/15 Unknown Rx 5/325] Betamethasone/Propylene Glyc 1 gm TP BID #50 oint...g. 11/06/18 Unknown Rx [Diprolene 0.05% Ointment] hydrOXYzine HCL [Atarax] 25 mg PO Q6HR PRN #20 tablet 11/06/18 Unknown Rx predniSONE [Deltasone] 20 mg PO QDAY #5 tab 11/06/18 Unknown Rx Mupirocin [Bactroban 2% OINT] 15 applic TP TID #15 gm 03/30/19 Unknown Rx cephALEXin [Keflex] 500 mg PO QID 7 Days #28 cap 03/30/19 Unknown Rx Allergies Allergy/AdvReac Type Severity Reaction Status Date / Time metronidazole Allergy Rash Verified 03/30/19 11:07 ED Review of Systems ROS: Stated complaint: AMS Other details as noted in HPI Comment: Unobtainable due to pts medical conditions (Review of systems as per caregiver) Constitutional: weakness, other (Unresponsiveness) Respiratory: denies: cough Cardiovascular: denies: syncope Gastrointestinal: denies: nausea, vomiting, diarrhea Neurological: weakness ED Past Medical Hx - Past Medical History Hx Hypertension: No Hx CVA: No Hx Heart Attack/AMI: No Hx Congestive Heart Failure: No Hx Diabetes: No Hx Deep Vein Thrombosis: No Hx Pulmonary Embolism: No Hx GERD: No Hx Liver Disease: No Hx Renal Disease: No Hx Sickle Cell Disease: No Hx Arthritis: No Hx Headaches / Migraines: No Hx Seizures: No Hx Kidney Stones: No Hx Psychiatric Treatment: No Hx Asthma: No Hx COPD: No Hx Tuberculosis: No Hx Dementia: No Hx HIV: No Additional medical history: Cerebral palsy, hypoxia, depression, mild MR, personality disorder - Surgical History Hx Coronary Stent: No Hx Open Heart Surgery: No Hx Pacemaker: No Hx Internal Defibrillator: No Hx Cholecystectomy: No Hx Appendectomy: No Hx Breast Surgery: No - Social History Smoking Status: Never Smoker Substance Use Type: Prescribed - Medications Home Medications: Home Medications Medication Instructions Recorded Confirmed Last Taken Type Gentamicin 0.3% Ophth Soln 2 drops OP Q4H 5 Days bottle 06/02/14 Unknown Rx Albuterol Mdi (or & Nicu Only) 2 puff IH QID PRN #1 inhalation 03/01/15 Unknown Rx [ProAir HFA Inhaler] Azithromycin [Zithromax Z-TAVON] 250 mg PO DAILY #6 tablet 03/01/15 Unknown Rx HYDROcodone/APAP 5-325 [[place] 1 each PO Q6HR PRN #20 tablet 09/19/15 Unknown Rx 5/325] Betamethasone/Propylene Glyc 1 gm TP BID #50 oint...g. 11/06/18 Unknown Rx [Diprolene 0.05% Ointment] hydrOXYzine HCL [Atarax] 25 mg PO Q6HR PRN #20 tablet 11/06/18 Unknown Rx predniSONE [Deltasone] 20 mg PO QDAY #5 tab 11/06/18 Unknown Rx Mupirocin [Bactroban 2% OINT] 15 applic TP TID #15 gm 03/30/19 Unknown Rx cephALEXin [Keflex] 500 mg PO QID 7 Days #28 cap 03/30/19 Unknown Rx ED Physical Exam - General Limitations: Altered Mental Status, Physical Limitation General appearance: in no apparent distress - Head Head exam: Present: atraumatic, normocephalic - Eye Eye exam: Present: normal appearance, EOMI - ENT ENT exam: Present: normal exam, normal orophraynx, mucous membranes moist, normal external ear exam, other (Poor dentition) - Neck Neck exam: Present: normal inspection, full ROM. Absent: tenderness, meningismus - Respiratory Respiratory exam: Present: normal lung sounds bilaterally. Absent: respiratory distress, wheezes, rales, rhonchi, stridor, decreased breath sounds - Cardiovascular Cardiovascular Exam: Present: regular rate, normal rhythm, normal heart sounds. Absent: bradycardia, tachycardia, irregular rhythm, systolic murmur, diastolic murmur, rubs, gallop - GI/Abdominal GI/Abdominal exam: Present: soft. Absent: distended, tenderness, guarding, rebound, rigid, pulsatile mass - Rectal Rectal exam: Present: normal inspection - External exam: Present: normal external exam - Extremities Exam Extremities exam: Present: other (2+ pulses noted in the bilateral upper and lower extremities. There is no palpable cord. negative Homans sign. Muscular compartments are soft. The pelvis is stable.). Absent: normal inspection (Contraction noted to right upper extremity, right lower extremity), tenderness - Back Exam Back exam: Present: normal inspection. Absent: CVA tenderness (R), CVA tenderness (L), paraspinal tenderness, vertebral tenderness - Neurological Exam Neurological exam: Present: altered (The patient is awake. The patient makes nonsensical sounds. The patient moves her left arm and left leg. She has contractures noted in her right arm and right leg.) - Psychiatric Psychiatric exam: Present: anxious - Skin Skin exam: Present: warm, dry, intact, normal color. Absent: rash ED Course Vital Signs 07/17/21 07/17/21 07/17/21 20:31 20:46 21:00 Temperature Pulse Rate 78 85 Respiratory 11 L 13 Rate Blood Pressure 145/48 152/111 Blood Pressure [Left] O2 Sat by Pulse 96 96 96 Oximetry 07/17/21 07/17/21 07/17/21 21:16 21:26 21:30 Temperature Pulse Rate Respiratory Rate Blood Pressure 152/111 152/111 152/111 Blood Pressure [Left] O2 Sat by Pulse 96 97 96 Oximetry 07/17/21 07/17/21 07/17/21 21:46 22:00 22:16 Temperature Pulse Rate Respiratory Rate Blood Pressure 152/111 114/66 114/66 Blood Pressure [Left] O2 Sat by Pulse 96 97 96 Oximetry 07/17/21 07/17/21 07/17/21 22:30 22:46 23:00 Temperature Pulse Rate 80 79 83 Respiratory 11 L 10 L 12 Rate Blood Pressure 114/66 114/66 Blood Pressure [Left] O2 Sat by Pulse 96 96 98 Oximetry 07/17/21 07/17/21 07/17/21 23:16 23:30 23:46 Temperature Pulse Rate 74 70 61 Respiratory 10 L 16 12 Rate Blood Pressure 110/58 100/50 100/50 Blood Pressure [Left] O2 Sat by Pulse 97 98 95 Oximetry 07/18/21 07/18/21 07/18/21 00:00 00:16 00:30 Temperature Pulse Rate 61 57 L 60 Respiratory 12 11 L 12 Rate Blood Pressure 80/36 80/36 125/44 Blood Pressure [Left] O2 Sat by Pulse 95 96 97 Oximetry 07/18/21 07/18/21 07/18/21 00:46 01:00 01:16 Temperature Pulse Rate 56 L 56 L 63 Respiratory 12 12 8 L Rate Blood Pressure 125/44 106/38 106/38 Blood Pressure [Left] O2 Sat by Pulse 98 97 98 Oximetry 07/18/21 07/18/21 07/18/21 01:30 01:46 02:00 Temperature Pulse Rate 59 L 58 L 54 L Respiratory 12 13 11 L Rate Blood Pressure 117/51 117/51 112/46 Blood Pressure [Left] O2 Sat by Pulse 96 95 96 Oximetry 07/18/21 07/18/21 07/18/21 02:16 02:30 02:46 Temperature Pulse Rate 56 L 58 L 60 Respiratory 12 12 12 Rate Blood Pressure 117/51 129/42 Blood Pressure [Left] O2 Sat by Pulse 96 95 94 Oximetry 07/18/21 07/18/21 07/18/21 03:01 03:15 03:31 Temperature Pulse Rate 60 63 61 Respiratory 12 13 13 Rate Blood Pressure 129/42 129/42 95/47 Blood Pressure [Left] O2 Sat by Pulse 94 94 94 Oximetry 07/18/21 07/18/21 07/18/21 03:45 04:01 04:15 Temperature Pulse Rate 65 67 68 Respiratory 13 13 14 Rate Blood Pressure 95/47 97/47 97/47 Blood Pressure [Left] O2 Sat by Pulse 93 93 93 Oximetry 07/18/21 07/18/21 07/18/21 04:31 04:45 05:01 Temperature Pulse Rate 64 65 67 Respiratory 14 14 14 Rate Blood Pressure 101/50 101/50 113/52 Blood Pressure [Left] O2 Sat by Pulse 95 95 94 Oximetry 07/18/21 07/18/21 07/18/21 05:15 05:31 05:45 Temperature Pulse Rate 59 L 57 L 62 Respiratory 11 L 10 L 13 Rate Blood Pressure 113/52 96/47 96/47 Blood Pressure [Left] O2 Sat by Pulse 96 96 95 Oximetry 07/18/21 07/18/21 07/18/21 06:01 06:15 06:31 Temperature Pulse Rate 61 60 61 Respiratory 13 12 12 Rate Blood Pressure 94/46 94/46 91/44 Blood Pressure [Left] O2 Sat by Pulse 94 93 94 Oximetry 07/18/21 07/18/21 07/18/21 06:45 07:00 08:00 Temperature Pulse Rate 69 68 65 Respiratory 14 12 8 L Rate Blood Pressure 91/44 89/55 83/41 Blood Pressure [Left] O2 Sat by Pulse 92 93 94 Oximetry 07/18/21 07/18/21 07/18/21 10:27 10:30 11:01 Temperature Pulse Rate 59 L 76 61 Respiratory 11 L Rate Blood Pressure Blood Pressure [Left] O2 Sat by Pulse 94 Oximetry 07/18/21 07/18/21 11:46 12:01 Temperature 99.1 F Pulse Rate 61 66 Respiratory 13 9 L Rate Blood Pressure 99/29 Blood Pressure 99/29 [Left] O2 Sat by Pulse 94 94 Oximetry - Reevaluation(s) Reevaluation #1: 07/17/21 23:56 Differential diagnosis, including but not limited to: Pneumonia, urinary tract infection, seizure, TIA, acute coronary syndrome, syncope, orthostasis, vagal event, structural cardiac disease Assessment and plan: 71-year-old female, with a known history of intellectual disability, seizure disorder, who presents to the ER with caregiver, with an articulated complaint from the caregiver of unresponsiveness, now resolved. Her caregiver states that she is back to her baseline. Patient resting comfortably in stretcher, and she is in no acute distress. Laboratory studies thus far unremarkable, urinalysis pending, and EKG pending. X-ray of the chest shows chronic findings. 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 The CT scan was evaluated personally by our consulting neurosurgeon, Dr. Rutledge. We discussed the patient's history, physical, laboratory studies and imaging studies. He advises that this is a chronic finding, and does not require emergent neurosurgical intervention. He indicates that he can follow in consultation, if necessary. We are awaiting urinalysis, and EKG. Given advanced age, period of unresponsiveness, unclear etiology, we will admit the patient to the medical service for observation, urgent neurosurgical consultation, and supportive care. I discussed this with her caregiver. She is agreeable to this plan of care. 07/18/21 00:02 Rectal temperature 97.6 degrees. 07/18/21 Dr Brown to admit to IMS 07/18/21 01:34 We will defer to inpatient team to follow-up on urinalysis. At this point in time, patient has not provided a urine sample, and we are still awaiting straight catheterized urine sample - EJ/Peripheral Line Other Time Out Performed: Yes Indications: nurses unable to establis Skin Cleansed in Sterile Fashion: Yes Size: 18 Dressing Placed: Tegaderm Patient Tolerated Procedure: well Additional Comments: Nursing team unable to establish IV access, in spite of multiple times. I evaluated the patient's upper extremities, and was not able to find a suitable vein. Patient's left external jugular vein also not able to be cannulated. Therefore, left neck is prepped in typical aseptic fashion, and using real-time ultrasound guidance, a 3 inch Angiocath, 18-gauge, is inserted into the left internal jugular vein, under direct ultrasound guidance. The lumen is cannulated on the first attempt, with immediate return of blood flow, and the catheter is gently inserted. A Tegaderm was then applied, and the line flushes easily. This line may be used for 24 hours, but recommend discontinuation as soon as possible, and evaluation by nurse for midline or PICC line, if patient requires an IV for greater than 24 hours. Defer to inpatient team to follow this up. ED Medical Decision Making - Lab Data Result diagrams: 07/17/21 21:16 07/17/21 21:16 Vital Signs 07/17/21 07/17/21 07/17/21 20:31 20:46 21:00 Pulse Rate 78 85 Respiratory 11 L 13 Rate Blood Pressure 145/48 152/111 O2 Sat by Pulse 96 96 96 Oximetry 07/17/21 21:16 Pulse Rate Respiratory Rate Blood Pressure 152/111 O2 Sat by Pulse 96 Oximetry Labs 07/17/21 07/17/21 07/17/21 21:16 21:16 21:16 WBC 6.3 RBC 4.54 Hgb 14.4 H Hct 43.7 H MCV 96 MCH 32 MCHC 33 RDW 14.3 Plt Count 269 Lymph % (Auto) 12.8 L [place] % (Auto) 9.0 H Eos % (Auto) 6.9 H Baso % (Auto) 0.4 Lymph # (Auto) 0.8 L [place] # (Auto) 0.6 Eos # (Auto) 0.4 Baso # (Auto) 0.0 Seg Neutrophils % 70.9 H Seg Neutrophils # 4.4 PT 13.0 INR 0.93 APTT 28.7 Sodium 144 Potassium 4.3 Chloride 104.4 Carbon Dioxide 28 Anion Gap 16 BUN 14 Creatinine 0.2 L Estimated GFR > 60 BUN/Creatinine Ratio 70 Glucose 125 H Lactic Acid Calcium 9.8 Magnesium 2.20 Total Bilirubin 0.20 AST 25 ALT 29 Alkaline Phosphatase 135 H Ammonia Total Creatine Kinase 179 H Troponin T < 0.010 Total Protein 7.3 Albumin 4.5 Albumin/Globulin Ratio 1.6 TSH Salicylates Acetaminophen Phenobarbital Plasma/Serum Alcohol Blood Type Antibody Screen 07/17/21 07/17/21 07/17/21 21:16 21:16 21:16 WBC RBC Hgb Hct MCV MCH MCHC RDW Plt Count Lymph % (Auto) [place] % (Auto) Eos % (Auto) Baso % (Auto) Lymph # (Auto) [place] # (Auto) Eos # (Auto) Baso # (Auto) Seg Neutrophils % Seg Neutrophils # PT INR APTT Sodium Potassium Chloride Carbon Dioxide Anion Gap BUN Creatinine Estimated GFR BUN/Creatinine Ratio Glucose Lactic Acid 1.70 Calcium Magnesium Total Bilirubin AST ALT Alkaline Phosphatase Ammonia 13.0 L Total Creatine Kinase Troponin T Total Protein Albumin Albumin/Globulin Ratio TSH 1.670 Salicylates Acetaminophen Phenobarbital Plasma/Serum Alcohol Blood Type Antibody Screen 07/17/21 07/17/21 07/17/21 21:16 21:16 21:16 WBC RBC Hgb Hct MCV MCH MCHC RDW Plt Count Lymph % (Auto) [place] % (Auto) Eos % (Auto) Baso % (Auto) Lymph # (Auto) [place] # (Auto) Eos # (Auto) Baso # (Auto) Seg Neutrophils % Seg Neutrophils # PT INR APTT Sodium Potassium Chloride Carbon Dioxide Anion Gap BUN Creatinine Estimated GFR BUN/Creatinine Ratio Glucose Lactic Acid Calcium Magnesium Total Bilirubin AST ALT Alkaline Phosphatase Ammonia Total Creatine Kinase Troponin T Total Protein Albumin Albumin/Globulin Ratio TSH Salicylates < 0.3 L Acetaminophen 5.0 L Phenobarbital Plasma/Serum Alcohol < 0.01 Blood Type Antibody Screen 07/17/21 07/17/21 21:33 21:37 WBC RBC Hgb Hct MCV MCH MCHC RDW Plt Count Lymph % (Auto) [place] % (Auto) Eos % (Auto) Baso % (Auto) Lymph # (Auto) [place] # (Auto) Eos # (Auto) Baso # (Auto) Seg Neutrophils % Seg Neutrophils # PT INR APTT Sodium Potassium Chloride Carbon Dioxide Anion Gap BUN Creatinine Estimated GFR BUN/Creatinine Ratio Glucose Lactic Acid Calcium Magnesium Total Bilirubin AST ALT Alkaline Phosphatase Ammonia Total Creatine Kinase Troponin T Total Protein Albumin Albumin/Globulin Ratio TSH Salicylates Acetaminophen Phenobarbital 2.8 L Plasma/Serum Alcohol Blood Type A POSITIVE Antibody Screen Negative - EKG Data -: EKG Interpreted by Ok EKG shows normal: sinus rhythm Rate: bradycardia - EKG Data 07/18/21 00:25 EKG is interpreted at 12: 18 a.m. Sinus rhythm, bradycardia, rate 54 bpm. Normal axis, normal intervals, left ventricular hypertrophy. Abnormal EKG. Not a STEMI. - Radiology Data Radiology results: pending, report reviewed, image reviewed [facility] [address] [place] [address] Cat Scan Report Signed Patient: NO MAGALLON MR#: [id number] : 1950 Acct:[id number] Age/Sex: 71 / F ADM Date: 07/17/21 Loc: ED Attending Dr: Ordering Physician: HEBER GUERRERO MD Date of Service: 07/17/21 Procedure(s): CT head/brain wo con Accession Number(s): [id number] cc: HEBER GUERRERO MD CT HEAD WITHOUT CONTRAST INDICATION / CLINICAL INFORMATION: Altered Mental Status. TECHNIQUE: All CT scans at this location are performed using CT dose reduction for ALARA by means of automated exposure control. COMPARISON: Head CT 03/30/2019 FINDINGS: HEMORRHAGE: None. EXTRA-AXIAL SPACES: Normal in size and morphology for the patient's age. VENTRICULAR SYSTEM: Normal in size and morphology for the patient's age. CEREBRAL PARENCHYMA: Large 7 cm left frontal lobe cystic mass with mass effect on left lateral ventricle is unchanged possibly representing epidermoid versus arachnoid cyst. No significant abnormality. No acute territorial infarct. MIDLINE SHIFT OR HERNIATION: None. CEREBELLUM / BRAINSTEM: No significant abnormality. ORBITS: Normal as visualized. SOFT TISSUES of HEAD: No significant abnormality. CALVARIUM: No significant abnormality. PARANASAL SINUSES / MASTOID AIR CELLS: Normal as visualized. ADDITIONAL FINDINGS: None. IMPRESSION: 1. Large 7 cm left frontal lobe cystic mass could represent arachnoid cyst or epidermoid. Recommend MRI with contrast for further characterization. 2. Moderate microangiopathy 3. No intracranial bleed. Signer Name: Jean Carlos Lutz MD Signed: 07/17/2021 11:18 PM Workstation Name: [id number] Transcribed By: Dictated By: Jean Carlos Lutz MD Electronically Authenticated By: Jean Carlos Lutz MD Signed Date/Time: 07/17/212317 DD/ 12 [facility] [address] [place] [address] XRay Report Signed Patient: NO MAGALLON MR#: [id number] : 1950 Acct:[id number] Age/Sex: 71 / F ADM Date: 07/17/21 Loc: ED Attending Dr: Ordering Physician: HEBER GUERRERO MD Date of Service: 07/17/21 Procedure(s): XR chest 1V ap Accession Number(s): [id number] cc: HEBER GUERRERO MD Fluoro Time In Minutes: CHEST 1 VIEW INDICATION: Altered Mental Status. COMPARISON: 03/01/2015 FINDINGS: Support devices: None. Heart: Normal. Lungs/Pleura: No acute pulmonary or pleural findings. There is mild atelectasis in the right lung base. There appears to be a chronic proximal right humerus fracture. IMPRESSION: 1. No acute pulmonary or pleural findings. Signer Name: Shaka Doty MD Signed: 07/17/2021 9:44 PM Workstation Name: [id number] Transcribed By: SW Dictated By: Shaka Doty MD Electronically Authenticated By: Shaka Doty MD Signed Date/Time: 07/17/212143 DD/ 43 Critical care attestation.: If time is entered above; I have spent that time in minutes in the direct care of this critically ill patient, excluding procedure time. ED Disposition Clinical Impression: Cyst of central nervous system, Intellectual disability, Unresponsive episode Disposition: 09 ADMITTED INPATIENT Is pt being admited?: Yes Does the pt Need Aspirin: No Condition: Good
[2021-07-17] MEDS ORDERED: levETIRAcetam 500 MG in DEXTROSE 5% IN WATER 100 ML IV ONE (23:59)
[2021-07-18] MEDS ORDERED: HYDROmorphone 1 MG/1 ML INJ IV PRN (04:37)
[2021-07-18] MEDS ORDERED: ONDANSETRON 4 MG/2 ML INJ IV PRN (04:37)
[2021-07-18] MEDS ORDERED: ACETAMINOPHEN 325 MG TAB PO PRN (04:37)
[2021-07-18] MEDS ORDERED: ALBUTEROL 2.5 MG/3 ML NEBU IH PRN (04:37)
[2021-07-18] MEDS ORDERED: oxyCODONE /ACETAMINOPHEN 5-325MG TAB PO PRN (04:37)
--- NOTE | 2021-07-18 04:47 | History and Physical Report ---
History of Present Illness Date of examination: 07/18/21 Date of admission: 07/18/21 Chief complaint: Unresponsiveness History of present illness: 71-year-old female with past medical history of developmental delay, spastic triplegic, seizure disorder, intellectual disability, and cerebral palsy was brought to the emergency room because of altered mental status and unresponsiveness. This happened at around 6:30 PM. Lasted for half hour. It is now resolved. As per Ms. Waddell, patient was in her usual state of health, at 6:30 PM, when she became unresponsive. There was no shaking. The patient had no preceding symptoms. The patient is now back to her baseline. As per her rn outpatient surgery, there is no trauma, fall, nausea, vomiting, diarrhea, fevers or chills. Patient has not started any new medications. Initial CT scan of the head shows large 7 cm left frontal lobe cystic mass could represent arachnoid cyst or epidermoid. Recommend MRI with contrast for further characterization. Moderate microangiopathy. No intracranial bleed Subsequently Case discussed with neurosurgeon Dr. Stauffer will see the patient in the morning as consultation. We will admit the patient will order MRI of the brain for further evaluation. Past History Past Medical History: other (Severe inactive chewable disability, seizure disorder, spastic triplegic, developmental delay, cerebral palsy) Medications and Allergies Allergies Allergy/AdvReac Type Severity Reaction Status Date / Time metronidazole Allergy Rash Verified 03/30/19 11:07 Home Medications Medication Instructions Recorded Confirmed Last Taken Type Gentamicin 0.3% Ophth Soln 2 drops OP Q4H 5 Days bottle 06/02/14 Unknown Rx Albuterol Mdi (or & Nicu Only) 2 puff IH QID PRN #1 inhalation 03/01/15 Unknown Rx [ProAir HFA Inhaler] Azithromycin [Zithromax Z-TAVON] 250 mg PO DAILY #6 tablet 03/01/15 Unknown Rx HYDROcodone/APAP 5-325 [[place] 1 each PO Q6HR PRN #20 tablet 09/19/15 Unknown Rx 5/325] Betamethasone/Propylene Glyc 1 gm TP BID #50 oint...g. 11/06/18 Unknown Rx [Diprolene 0.05% Ointment] hydrOXYzine HCL [Atarax] 25 mg PO Q6HR PRN #20 tablet 11/06/18 Unknown Rx predniSONE [Deltasone] 20 mg PO QDAY #5 tab 11/06/18 Unknown Rx Mupirocin [Bactroban 2% OINT] 15 applic TP TID #15 gm 03/30/19 Unknown Rx cephALEXin [Keflex] 500 mg PO QID 7 Days #28 cap 03/30/19 Unknown Rx Active Meds: Active Medications Acetaminophen (Acetaminophen 325 Mg Tab) 650 mg PO Q4H PRN PRN Reason: Pain MILD(1-3)/Fever >100.5/PHELPS Albuterol (Albuterol 2.5 Mg/3 Ml Nebu) 2.5 mg IH Q4HRT PRN PRN Reason: Shortness Of Breath Albuterol/Ipratropium (Ipratropium/Albuterol Sulfate 3 Ml Ampul.Neb) 1 ampul IH Q6HRT WILFRIDO Ondansetron HCl (Ondansetron 4 Mg/2 Ml Inj) 4 mg IV Q8H PRN PRN Reason: Nausea And Vomiting Sodium Chloride (Sodium Chloride 0.9% 10 Ml Flush Syringe) 10 ml IV BID WILFRIDO Sodium Chloride (Sodium Chloride 0.9% 10 Ml Flush Syringe) 10 ml IV PRN PRN PRN Reason: LINE FLUSH Sodium Chloride (Sodium Chloride 0.9% 10 Ml Flush Syringe) 10 ml INJ PRN PRN PRN Reason: LINE FLUSH Review of Systems All systems: negative Constitutional: lethargy Neurological: change in mentation, other (Unresponsive) Exam - Constitutional Vitals: Temp Pulse Resp BP Pulse Ox 60 12 129/42 94 07/18/21 02:46 07/18/21 02:46 07/18/21 02:30 07/18/21 02:46 General appearance: Present: no acute distress, well-nourished - EENT Eyes: Present: PERRL ENT: hearing intact, clear oral mucosa - Neck Neck: Present: supple, normal ROM - Respiratory Respiratory effort: normal Respiratory: bilateral: CTA - Cardiovascular Heart Sounds: Present: S1 & S2. Absent: rub, click - Extremities Extremities: pulses symmetrical, No edema Peripheral Pulses: within normal limits - Abdominal General gastrointestinal: Present: soft, non-tender, non-distended, normal bowel sounds Female genitourinary: Present: normal - Integumentary Integumentary: Present: clear, warm, dry - Musculoskeletal Musculoskeletal: strength equal bilaterally, other (Less responsive) - Psychiatric Psychiatric: other (Unresponsive) - Neurologic Neurologic: CNII-XII intact, moves all extremities HEART Score - HEART Score Troponin: Troponin T < 0.010 ng/mL (0.00-0.029) 07/17/21 21:16 Results - Labs CBC & Chem 7: 07/17/21 21:16 07/17/21 21:16 Labs: Laboratory Last Values WBC 6.3 K/mm3 (4.5-11.0) 07/17/21 21:16 RBC 4.54 M/mm3 (3.65-5.03) 07/17/21 21:16 Hgb 14.4 gm/dl (10.1-14.3) H 07/17/21 21:16 Hct 43.7 % (30.3-42.9) H 07/17/21 21:16 MCV 96 fl (79-97) 07/17/21 21:16 MCH 32 pg (28-32) 07/17/21 21:16 MCHC 33 % (30-34) 07/17/21 21:16 RDW 14.3 % (13.2-15.2) 07/17/21 21:16 Plt Count 269 K/mm3 (140-440) 07/17/21 21:16 Lymph % (Auto) 12.8 % (13.4-35.0) L 07/17/21 21:16 [place] % (Auto) 9.0 % (0.0-7.3) H 07/17/21 21:16 Eos % (Auto) 6.9 % (0.0-4.3) H 07/17/21 21:16 Baso % (Auto) 0.4 % (0.0-1.8) 07/17/21 21:16 Lymph # (Auto) 0.8 K/mm3 (1.2-5.4) L 07/17/21 21:16 [place] # (Auto) 0.6 K/mm3 (0.0-0.8) 07/17/21 21:16 Eos # (Auto) 0.4 K/mm3 (0.0-0.4) 07/17/21 21:16 Baso # (Auto) 0.0 K/mm3 (0.0-0.1) 07/17/21 21:16 Seg Neutrophils % 70.9 % (40.0-70.0) H 07/17/21 21:16 Seg Neutrophils # 4.4 K/mm3 (1.8-7.7) 07/17/21 21:16 PT 13.0 Sec. (12.2-14.9) 07/17/21 21:16 INR 0.93 (0.87-1.13) 07/17/21 21:16 APTT 28.7 Sec. (24.2-36.6) 07/17/21 21:16 Sodium 144 mmol/L (137-145) 07/17/21 21:16 Potassium 4.3 mmol/L (3.6-5.0) 07/17/21 21:16 Chloride 104.4 mmol/L (98-107) 07/17/21 21:16 Carbon Dioxide 28 mmol/L (22-30) 07/17/21 21:16 Anion Gap 16 mmol/L 07/17/21 21:16 BUN 14 mg/dL (7-17) 07/17/21 21:16 Creatinine 0.2 mg/dL (0.6-1.2) L 07/17/21 21:16 Estimated GFR > 60 ml/min 07/17/21 21:16 BUN/Creatinine Ratio 70 % 07/17/21 21:16 Glucose 125 mg/dL (65-100) H 07/17/21 21:16 Lactic Acid 1.70 mmol/L (0.7-2.0) 07/17/21 21:16 Calcium 9.8 mg/dL (8.4-10.2) 07/17/21 21:16 Magnesium 2.20 mg/dL (1.7-2.3) 07/17/21 21:16 Total Bilirubin 0.20 mg/dL (0.1-1.2) 07/17/21 21:16 AST 25 units/L (5-40) 07/17/21 21:16 ALT 29 units/L (7-56) 07/17/21 21:16 Alkaline Phosphatase 135 units/L (35-129) H 07/17/21 21:16 Ammonia 13.0 umol/L (25-60) L 07/17/21 21:16 Total Creatine Kinase 179 units/L (30-135) H 07/17/21 21:16 Troponin T < 0.010 ng/mL (0.00-0.029) 07/17/21 21:16 Total Protein 7.3 g/dL (6.3-8.2) 07/17/21 21:16 Albumin 4.5 g/dL (3.9-5) 07/17/21 21:16 Albumin/Globulin Ratio 1.6 % 07/17/21 21:16 TSH 1.670 mlU/mL (0.270-4.200) 07/17/21 21:16 Salicylates < 0.3 mg/dL (2.8-20.0) L 07/17/21 21:16 Acetaminophen 5.0 ug/mL (10.0-30.0) L 07/17/21 21:16 Phenobarbital 2.8 ug/mL (15.0-40.0) L 07/17/21 21:37 Plasma/Serum Alcohol < 0.01 % (0-0.07) 07/17/21 21:16 Blood Type A POSITIVE 07/17/21 21:33 Antibody Screen Negative 07/17/21 21:33 - Imaging and Cardiology CT Scan - head: report reviewed Assessment and Plan VTE prophylaxis?: Mechanical Plan of care discussed with patient/family: Yes - Patient Problems (1) Cyst of central nervous system Current Visit: Yes Status: Acute Plan to address problem: Admit the patient to the medical floor. NPO. D5 normal saline at the rate of 100 cc/h. Pepcid 20 mg IV every 12 hours. We order MRI of the brain with and without contrast. Echocardiogram. PT OT any speech evaluation. Will consult neurosurgery for evaluation and treatment. (2) Intellectual disability Current Visit: Yes Status: Acute Plan to address problem: . We continue the supportive care. We continue home medication. PT OT any speech evaluation. We will monitor the patient closely (3) Unresponsive episode Current Visit: Yes Status: Acute Plan to address problem: Resolved. NPO. D5 normal saline at the rate of 100 cc/h. Pepcid 20 mg IV every 12 hours. We order MRI of the brain with and without contrast. Echocardiogram. PT OT any speech evaluation. Will consult neurosurgery for evaluation and treatment. (4) DVT prophylaxis Current Visit: Yes Status: Acute Plan to address problem: SCD for DVT prophylaxis. Pepcid 20 mg IV every 12 hours for GI prophylaxis. Patient is a full code.
[2021-07-18] MEDS ORDERED: GENTAMICIN 0.3% OPHTH SOLN 5 ML OD SCH (05:00)
[2021-07-18] MEDS ORDERED: MUPIROCIN 2% OINT 22 GM TP SCH (08:00)
[2021-07-18] MEDS ORDERED: AZITHROMYCIN 250 MG TAB PO SCH (10:00)
[2021-07-18] MEDS ORDERED: cephALEXin 500 MG CAP PO SCH (10:00)
[2021-07-18] MEDS ORDERED: [UNRECOGNIZED DRUG - OTHER] TP SCH (10:00)
[2021-07-18] MEDS ORDERED: FAMOTIDINE 20 MG/2 ML INJ IV SCH (10:00)
[2021-07-18] MEDS ORDERED: BETAMETHASONE TP SCH (10:00)
[2021-07-18] MEDS ORDERED: PROPYLENE GLYC TP SCH (10:00)
--- NOTE | 2021-07-18 10:05 | Event Note ---
Date: 07/18/21 Patient was admitted this morning with altered level of consciousness CT head showed, cyst in the brain, Neurosurgery consulted,. MRI brain with contrast requested I have seen and examined the patient in ER awaiting bed assignment Patient is mentally retarded, noncommunicative, not in acute distress Tests and reports, treatment plan reviewed, Assessment and plan; --Metabolic encephalopathy --Brain cyst on CT, follow MRI brain with contrast, follow neurosurg evaluation --Mental retardation/developmental delay --DVT prophylaxis Continue current management Will closely monitor and adjust the management as needed Follow neurosurgery recommendations.
--- NOTE | 2021-07-18 12:28 | Progress Note ---
Subjective Date of service: 07/18/21 Interval history: NSGY update: CT head revealed. 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 Please obtain MRI brain with and without contrast. Will follow, please notify if questions. Objective - Vital Sign Vital Signs - 12hr 07/18/21 07/18/21 07/18/21 00:30 00:46 01:00 Temperature Pulse Rate 60 56 L 56 L Respiratory 12 12 12 Rate Blood Pressure 125/44 125/44 106/38 Blood Pressure [Left] O2 Sat by Pulse 97 98 97 Oximetry 07/18/21 07/18/21 07/18/21 01:16 01:30 01:46 Temperature Pulse Rate 63 59 L 58 L Respiratory 8 L 12 13 Rate Blood Pressure 106/38 117/51 117/51 Blood Pressure [Left] O2 Sat by Pulse 98 96 95 Oximetry 07/18/21 07/18/21 07/18/21 02:00 02:16 02:30 Temperature Pulse Rate 54 L 56 L 58 L Respiratory 11 L 12 12 Rate Blood Pressure 112/46 117/51 129/42 Blood Pressure [Left] O2 Sat by Pulse 96 96 95 Oximetry 07/18/21 07/18/21 07/18/21 02:46 03:01 03:15 Temperature Pulse Rate 60 60 63 Respiratory 12 12 13 Rate Blood Pressure 129/42 129/42 Blood Pressure [Left] O2 Sat by Pulse 94 94 94 Oximetry 07/18/21 07/18/21 07/18/21 03:31 03:45 04:01 Temperature Pulse Rate 61 65 67 Respiratory 13 13 13 Rate Blood Pressure 95/47 95/47 97/47 Blood Pressure [Left] O2 Sat by Pulse 94 93 93 Oximetry 07/18/21 07/18/21 07/18/21 04:15 04:31 04:45 Temperature Pulse Rate 68 64 65 Respiratory 14 14 14 Rate Blood Pressure 97/47 101/50 101/50 Blood Pressure [Left] O2 Sat by Pulse 93 95 95 Oximetry 07/18/21 07/18/21 07/18/21 05:01 05:15 05:31 Temperature Pulse Rate 67 59 L 57 L Respiratory 14 11 L 10 L Rate Blood Pressure 113/52 113/52 96/47 Blood Pressure [Left] O2 Sat by Pulse 94 96 96 Oximetry 07/18/21 07/18/21 07/18/21 05:45 06:01 06:15 Temperature Pulse Rate 62 61 60 Respiratory 13 13 12 Rate Blood Pressure 96/47 94/46 94/46 Blood Pressure [Left] O2 Sat by Pulse 95 94 93 Oximetry 07/18/21 07/18/21 07/18/21 06:31 06:45 07:00 Temperature Pulse Rate 61 69 68 Respiratory 12 14 12 Rate Blood Pressure 91/44 91/44 89/55 Blood Pressure [Left] O2 Sat by Pulse 94 92 93 Oximetry 07/18/21 07/18/21 07/18/21 08:00 10:27 11:01 Temperature Pulse Rate 65 59 L 61 Respiratory 8 L 11 L Rate Blood Pressure 83/41 Blood Pressure [Left] O2 Sat by Pulse 94 94 Oximetry 07/18/21 11:46 Temperature 99.1 F Pulse Rate 61 Respiratory 13 Rate Blood Pressure Blood Pressure 99/29 [Left] O2 Sat by Pulse 94 Oximetry - Laboratory Findings CBC and BMP: 07/17/21 21:16 07/17/21 21:16 Abnormal Lab Findings: Abnormal Labs 07/17/21 07/17/21 07/17/21 21:16 21:16 21:16 Hgb 14.4 H Hct 43.7 H Lymph % (Auto) 12.8 L [place] % (Auto) 9.0 H Eos % (Auto) 6.9 H Lymph # (Auto) 0.8 L Seg Neutrophils % 70.9 H Creatinine 0.2 L Glucose 125 H Alkaline Phosphatase 135 H Ammonia 13.0 L Total Creatine Kinase 179 H Salicylates Acetaminophen Phenobarbital 07/17/21 07/17/21 07/17/21 21:16 21:16 21:37 Hgb Hct Lymph % (Auto) [place] % (Auto) Eos % (Auto) Lymph # (Auto) Seg Neutrophils % Creatinine Glucose Alkaline Phosphatase Ammonia Total Creatine Kinase Salicylates < 0.3 L Acetaminophen 5.0 L Phenobarbital 2.8 L
[2021-07-18] MEDS: IPRATROPIUM/ALBUTEROL SULFATE 3 ML AMPUL.NEB IH SCH ×2 (12:40→22:21)
[2021-07-18 13:02] LABS: Bacteria,Urine 4+ /HPF (Negative); Bilirubin,Urine NEG (Negative); Blood,Urine SM (Negative); Color,Urine Yellow (Yellow); Mucus,Urine 3+ /HPF; Urobilinogen,Urine < 2.0 mg/dL (<2.0)
[2021-07-18] MEDS: D5W/0.9% NACL 1,000 ML IV SCH (13:50)
[2021-07-18] MEDS: FAMOTIDINE 20 MG/2 ML INJ IV SCH (21:37)
[2021-07-19] MEDS: D5W/0.9% NACL 1,000 ML IV SCH (06:43)
[2021-07-19 08:49] LABS: Chol/HDL Ratio 2.18 %
--- NOTE | 2021-07-19 09:26 | Progress Note ---
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 We will follow MRI brain with and without contrast Continue supportive care Follow neurosurgery recommendations DC planning per case management 07/19/2021; Follow MRI with and without contrast Follow neurosurgery evaluation recommendation Discharge planning per case management History Interval history: I seen and examined the patient at the bedside Patient's chart and medications reviewed Patient is noncommunicative, not in acute distress No new events reported by the nursing staff MRI brain with and without contrast scheduled today Hospitalist Physical - Constitutional Vitals: Temp Pulse Resp BP Pulse Ox 97.8 F 70 18 129/63 98 07/19/21 08:40 07/19/21 08:40 07/19/21 08:40 07/19/21 08:40 07/19/21 08:40 General appearance: Present: no acute distress, well-nourished - EENT Eyes: Present: PERRL. Absent: scleral icterus - Neck Neck: Present: supple, normal ROM - Respiratory Respiratory effort: normal Respiratory: bilateral: diminished, negative: rales, rhonchi, wheezing - Cardiovascular Rhythm: regular Heart Sounds: Present: S1 & S2 - Extremities Extremities: abnormal (Contracted) - Abdominal General gastrointestinal: soft, non-tender, non-distended, normal bowel sounds - Integumentary Integumentary: Present: clear, warm - Psychiatric Psychiatric: other (Noncommunicative) - Neurologic Neurologic: other (Noncommunicative, developmental delay) HEART Score - HEART Score Troponin: Troponin T < 0.010 ng/mL (0.00-0.029) 07/17/21 21:16 Results - Labs CBC & Chem 7: 07/17/21 21:16 07/17/21 21:16 Labs: Laboratory Last Values WBC 6.3 K/mm3 (4.5-11.0) 07/17/21 21:16 RBC 4.54 M/mm3 (3.65-5.03) 07/17/21 21:16 Hgb 14.4 gm/dl (10.1-14.3) H 07/17/21 21:16 Hct 43.7 % (30.3-42.9) H 07/17/21 21:16 MCV 96 fl (79-97) 07/17/21 21:16 MCH 32 pg (28-32) 07/17/21 21:16 MCHC 33 % (30-34) 07/17/21 21:16 RDW 14.3 % (13.2-15.2) 07/17/21 21:16 Plt Count 269 K/mm3 (140-440) 07/17/21 21:16 Lymph % (Auto) 12.8 % (13.4-35.0) L 07/17/21 21:16 [place] % (Auto) 9.0 % (0.0-7.3) H 07/17/21 21:16 Eos % (Auto) 6.9 % (0.0-4.3) H 07/17/21 21:16 Baso % (Auto) 0.4 % (0.0-1.8) 07/17/21 21:16 Lymph # (Auto) 0.8 K/mm3 (1.2-5.4) L 07/17/21 21:16 [place] # (Auto) 0.6 K/mm3 (0.0-0.8) 07/17/21 21:16 Eos # (Auto) 0.4 K/mm3 (0.0-0.4) 07/17/21 21:16 Baso # (Auto) 0.0 K/mm3 (0.0-0.1) 07/17/21 21:16 Seg Neutrophils % 70.9 % (40.0-70.0) H 07/17/21 21:16 Seg Neutrophils # 4.4 K/mm3 (1.8-7.7) 07/17/21 21:16 PT 13.0 Sec. (12.2-14.9) 07/17/21 21:16 INR 0.93 (0.87-1.13) 07/17/21 21:16 APTT 28.7 Sec. (24.2-36.6) 07/17/21 21:16 Sodium 144 mmol/L (137-145) 07/17/21 21:16 Potassium 4.3 mmol/L (3.6-5.0) 07/17/21 21:16 Chloride 104.4 mmol/L (98-107) 07/17/21 21:16 Carbon Dioxide 28 mmol/L (22-30) 07/17/21 21:16 Anion Gap 16 mmol/L 07/17/21 21:16 BUN 14 mg/dL (7-17) 07/17/21 21:16 Creatinine 0.2 mg/dL (0.6-1.2) L 07/17/21 21:16 Estimated GFR > 60 ml/min 07/17/21 21:16 BUN/Creatinine Ratio 70 % 07/17/21 21:16 Glucose 125 mg/dL (65-100) H 07/17/21 21:16 POC Glucose 94 mg/dL (70-105) 07/19/21 08:40 Lactic Acid 1.70 mmol/L (0.7-2.0) 07/17/21 21:16 Calcium 9.8 mg/dL (8.4-10.2) 07/17/21 21:16 Magnesium 2.20 mg/dL (1.7-2.3) 07/17/21 21:16 Total Bilirubin 0.20 mg/dL (0.1-1.2) 07/17/21 21:16 AST 25 units/L (5-40) 07/17/21 21:16 ALT 29 units/L (7-56) 07/17/21 21:16 Alkaline Phosphatase 135 units/L (35-129) H 07/17/21 21:16 Ammonia 13.0 umol/L (25-60) L 07/17/21 21:16 Total Creatine Kinase 179 units/L (30-135) H 07/17/21 21:16 Troponin T < 0.010 ng/mL (0.00-0.029) 07/17/21 21:16 Total Protein 7.3 g/dL (6.3-8.2) 07/17/21 21:16 Albumin 4.5 g/dL (3.9-5) 07/17/21 21:16 Albumin/Globulin Ratio 1.6 % 07/17/21 21:16 Triglycerides 78 mg/dL (2-149) 07/18/21 21:43 Cholesterol 205 mg/dL (50-199) H 07/18/21 21:43 LDL Cholesterol Direct 92 mg/dL (50-130) 07/18/21 21:43 HDL Cholesterol 94 mg/dL (40-59) H 07/18/21 21:43 Cholesterol/HDL Ratio 2.18 % 07/18/21 21:43 TSH 1.670 mlU/mL (0.270-4.200) 07/17/21 21:16 Urine Color Yellow (Yellow) 07/18/21 12:33 Urine Turbidity Turbid (Clear) 07/18/21 12:33 Urine pH 5.0 (5.0-7.0) 07/18/21 12:33 Ur Specific [place] 1.019 (1.003-1.030) 07/18/21 12:33 Urine Protein 100 mg/dl mg/dL (Negative) 07/18/21 12:33 Urine Glucose (UA) Neg mg/dL (Negative) 07/18/21 12:33 Urine Ketones Neg mg/dL (Negative) 07/18/21 12:33 Urine Blood Sm (Negative) 07/18/21 12:33 Urine Nitrite Pos (Negative) 07/18/21 12:33 Ur Reducing Substances Not Reportable 07/18/21 12:33 Urine Bilirubin Neg (Negative) 07/18/21 12:33 Urine Ictotest Not Reportable 07/18/21 12:33 Urine Urobilinogen < 2.0 mg/dL (<2.0) 07/18/21 12:33 Ur Leukocyte Esterase Sm (Negative) 07/18/21 12:33 Urine WBC (Auto) 85.0 /HPF (0.0-6.0) H 07/18/21 12:33 Urine RBC (Auto) 142.0 /HPF (0.0-6.0) 07/18/21 12:33 U Epithel Cells (Auto) 3.0 /HPF (0-13.0) 07/18/21 12:33 Urine Bacteria (Auto) 4+ /HPF (Negative) 07/18/21 12:33 Urine Mucus 3+ /HPF 07/18/21 12:33 Salicylates < 0.3 mg/dL (2.8-20.0) L 07/17/21 21:16 Acetaminophen 5.0 ug/mL (10.0-30.0) L 07/17/21 21:16 Phenytoin 11.5 ug/mL (10.0-20.0) 07/18/21 21:43 Phenobarbital 2.8 ug/mL (15.0-40.0) L 07/17/21 21:37 Plasma/Serum Alcohol < 0.01 % (0-0.07) 07/17/21 21:16 Blood Type A POSITIVE 07/17/21 21:33 Antibody Screen Negative 07/17/21 21:33 Cedeño/IV: Voiding Method External Female Catheter Active Medications - Current Medications Current Medications: Generic Name Dose Route Start Last Admin Trade Name Freq PRN Reason Stop Dose Admin Acetaminophen 650 mg 07/18/21 04:37 Acetaminophen 325 Mg Tab PO Q4H PRN Pain MILD(1-3)/Fever >100.5/PHELPS Albuterol 2.5 mg 07/18/21 04:37 Albuterol 2.5 Mg/3 Ml Nebu IH Q4HRT PRN Shortness Of Breath Atorvastatin Calcium 40 mg 07/18/21 22:00 07/18/21 21:37 Atorvastatin 40 Mg Tab PO 40 mg QHS WILFRIDO Administration Famotidine 10 mg 07/18/21 22:00 07/18/21 21:37 Famotidine 20 Mg/2 Ml Inj IV 10 mg BID WILFRIDO Administration Hydromorphone HCl 0.5 mg 07/18/21 04:37 Hydromorphone 1 Mg/1 Ml Inj IV Q3H PRN Pain , Severe (7-10) Dextrose/Sodium Chloride 1,000 mls @ 75 mls/hr 07/18/21 05:00 07/19/21 06:43 D5ns IV 75 mls/hr DIRECT WILFRIDO Administration Miscellaneous Medication 1 gm 07/18/21 10:00 07/18/21 11:53 Betamethasone/Propylene Glyc [Diprolene 0.05% Ointment] TP Not Given BID WILFRIDO Ondansetron HCl 4 mg 07/18/21 04:37 Ondansetron 4 Mg/2 Ml Inj IV Q8H PRN Nausea And Vomiting Oxycodone/Acetaminophen 1 tab 07/18/21 04:37 Oxycodone /Acetaminophen 5-325mg Tab PO Q6H PRN Pain, Moderate (4-6) Sodium Chloride 10 ml 07/18/21 10:00 07/18/21 21:38 Sodium Chloride 0.9% 10 Ml Flush Syringe IV 10 ml BID WILFRIDO Administration Sodium Chloride 10 ml 07/18/21 04:37 Sodium Chloride 0.9% 10 Ml Flush Syringe IV PRN PRN LINE FLUSH
--- NOTE | 2021-07-19 11:04 | Electrocardiograph Report ---
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
[2021-07-19] MEDS: FAMOTIDINE 20 MG/2 ML INJ IV SCH ×2 (11:30→22:02)
[2021-07-19] MEDS ORDERED: LORazepam 2 MG/ML VIAL IV SCH (14:00)
[2021-07-19] MEDS ORDERED: LIPASE 10,500/PROTEASE 25,000/AMYLASE 43,750 (UNITS) DR CAP FEEDTUBE PRN (16:30)
[2021-07-19] MEDS ORDERED: SODIUM BICARBONATE 325 MG TAB FEEDTUBE PRN (16:30)
[2021-07-19] MEDS ORDERED: SIMPLE SYRUP 15 ML FEEDTUBE PRN ×2 (16:30)
--- NOTE | 2021-07-19 16:31 | Magnetic Resonance Report ---
MRI BRAIN WITHOUT AND WITH CONTRAST INDICATION / CLINICAL INFORMATION: 7 cm cyst frontal lobe on CT /per Dr. Stauffer[[facility] TECHNIQUE: Multiplanar, multisequence MR images of the brain were obtained. 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 This is stable dating back to 03/30/2019. There is st able moderate global brain atrophy. There is stable moderate chronic small vessel ischemic change in the cerebral white matter. There is no abnormal intracranial enhancement. CRANIOCERVICAL JUNCTION: No significant abnormality. VASCULAR FLOW-VOIDS: No significant abnormality. ORBITS: No significant abnormality of visualized orbits. SINUSES / MASTOIDS: No significant abnormality of visualized sinuses and mastoid air cells. ADDITIONAL FINDINGS: None. IMPRESSION: 1. Large cyst in the area of encephalomalacia in the left frontal lobe is unchanged dating back to . 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 Signer Name: Lenny Hernandez MD Signed: 07/19/2021 4:26 PM Workstation Name: [id number]
--- NOTE | 2021-07-19 17:26 | Progress Note ---
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 Therefore, there is no further NSGY intervention recommended at this time. The patient may follow up as needed in clinic. Objective - Vital Sign Vital Signs - 12hr 07/19/21 07/19/21 08:40 10:00 Temperature 97.8 F Pulse Rate 70 Respiratory 18 Rate Blood Pressure 129/63 O2 Sat by Pulse 98 93 Oximetry - Laboratory Findings CBC and BMP: 07/17/21 21:16 07/17/21 21:16 Abnormal Lab Findings: Abnormal Labs 07/17/21 07/17/21 07/17/21 21:16 21:16 21:16 Hgb 14.4 H Hct 43.7 H Lymph % (Auto) 12.8 L [place] % (Auto) 9.0 H Eos % (Auto) 6.9 H Lymph # (Auto) 0.8 L Seg Neutrophils % 70.9 H Creatinine 0.2 L Glucose 125 H Alkaline Phosphatase 135 H Ammonia 13.0 L Total Creatine Kinase 179 H Cholesterol HDL Cholesterol Urine WBC (Auto) Salicylates Acetaminophen Phenobarbital 07/17/21 07/17/21 07/17/21 21:16 21:16 21:37 Hgb Hct Lymph % (Auto) [place] % (Auto) Eos % (Auto) Lymph # (Auto) Seg Neutrophils % Creatinine Glucose Alkaline Phosphatase Ammonia Total Creatine Kinase Cholesterol HDL Cholesterol Urine WBC (Auto) Salicylates < 0.3 L Acetaminophen 5.0 L Phenobarbital 2.8 L 07/18/21 07/18/21 12:33 21:43 Hgb Hct Lymph % (Auto) [place] % (Auto) Eos % (Auto) Lymph # (Auto) Seg Neutrophils % Creatinine Glucose Alkaline Phosphatase Ammonia Total Creatine Kinase Cholesterol 205 H HDL Cholesterol 94 H Urine WBC (Auto) 85.0 H Salicylates Acetaminophen Phenobarbital
[2021-07-20] MEDS: FAMOTIDINE 20 MG/2 ML INJ IV SCH (09:18)
[2021-07-20] MEDS ORDERED: hydrALAZINE 20 MG/1 ML INJ IV PRN (14:30)
[2021-07-20] MEDS: D5W/0.9% NACL 1,000 ML IV SCH (18:05)
[2021-07-20] MEDS: FAMOTIDINE 10 MG TAB FEEDTUBE SCH (21:59)
--- NOTE | 2021-07-20 23:21 | Progress Note ---
Assessment and Plan -- Cyst of central nervous system CT head without contrast; large 7 cm left frontal lobe cystic mass could represent arachnoid cyst or epidermoid moderate microangiopathy Neurosurgery evaluated the patient, Recommend MRI with and without contrast showed no changes compared to prior study Continue supportive care MRI brain without and with contrast; Large cyst in the area of encephalomalacia in the left frontal lobe is unchanged dating back to 03/30/2019 this most likely an arachnoid cyst --Developmental delay/mental retardation Continue supportive care --Acute metabolic encephalopathy Multifactorial, developmental delay , underlying disease process Neurosurgery following --GI prophylaxis; Pepcid 20 mg IV every 12 hours --Severe protein calorie malnutrition, present on admission Dietary consult, --Full code status; --DVT prophylaxis SCD for DVT prophylaxis. Daily clinical course: 07/19/2021; Follow MRI with and without contrast Follow neurosurgery evaluation recommendation Discharge planning per case management 07/20/21: Neurosurgery evaluated the patient reviewed the MRI .No further NSGY intervention recommended at this time. Advised the patient patient to follow up as needed in outpatient neurosurgery clinic. Wait on PT eval and case management for discharge planning Subjective Date of service: 07/20/21 Interval history: Patient seen and examined. Medical records and medication list reviewed. No acute event overnight noted by the RN. Patient with developmental delay is noncommunicative and unable to follow any command Discussed plan of care at bedside with patient's RN. Objective - Exam Narrative Exam: General appearance: Present: no acute distress, mal-nourished elderly WF - EENT Eyes: Present: PERRL. Absent: scleral icterus - Neck Neck: Present: supple, normal ROM - Respiratory Respiratory effort: normal Respiratory: bilateral: diminished, negative: rales, rhonchi, wheezing - Cardiovascular Rhythm: regular Heart Sounds: Present: S1 & S2 - Extremities Extremities: abnormal (Contracted) - Abdominal General gastrointestinal: soft, non-tender, non-distended, normal bowel sounds - Integumentary Integumentary: Present: clear, warm - Psychiatric Psychiatric: other (Noncommunicative) - Neurologic Neurologic: other (Noncommunicative, developmental delay) - Constitutional Vitals: Vital Signs - 12hr 07/20/21 07/20/21 07/20/21 15:46 18:00 19:45 Temperature 97.7 F Pulse Rate 101 H 86 76 Respiratory 16 Rate Blood Pressure 151/84 Blood Pressure [Left] O2 Sat by Pulse 80 L Oximetry 07/20/21 20:15 Temperature 98.6 F Pulse Rate 76 Respiratory 18 Rate Blood Pressure Blood Pressure 141/68 [Left] O2 Sat by Pulse 99 Oximetry - Labs CBC & Chem 7: 07/17/21 21:16 07/17/21 21:16 HEART Score - HEART Score Troponin: Troponin T < 0.010 ng/mL (0.00-0.029) 07/17/21 21:16
[2021-07-21] MEDS: FAMOTIDINE 10 MG TAB FEEDTUBE SCH (09:16)
[2021-07-21 11:42] VITALS: BP 145/69
--- NOTE | 2021-07-21 13:03 | Discharge Summary ---
Providers - Providers Date of Admission: 07/19/21 09:17 Date of discharge: 07/21/21 Attending physician: LINA DOUGLAS 07/17/21 23:47 Consult to Physician [CONS] Urgent Comment: Consulting Provider: BAYRON GILLILAND II Physician Instructions: Reason For Exam: cystic mass, frontal lobe 07/18/21 04:38 Occupational Therapy Evaluate and Treat [CONS] Routine Comment: Reason For Exam: Neuro deficits Physical Therapy Evaluation and Treat [CONS] Routine Comment: Reason For Exam: Neuro deficits 07/20/21 07:42 Speech Therapy Evaluation and Treat [CONS] Routine Reason For Exam: Swallowing evaluation Primary care physician: ANALISA HUGO MD Hospitalization Condition: Good Pertinent studies: Chest x-ray, head CT, brain MRI Hospital course: 71-year-old female with past medical history of developmental delay, spastic triplegic, seizure disorder, intellectual disability, and cerebral palsy was brought to the emergency room because of altered mental status and unresponsiveness. This happened at around 6:30 PM. Lasted for half hour. As per Ms. Waddell, patient was in her usual state of health, at 6:30 PM, when she became unresponsive. There was no shaking. The patient had no preceding symptoms. The patient then back to her baseline by the time she is at ER. Initial CT scan of the head shows large 7 cm left frontal lobe cystic mass could represent arachnoid cyst or epidermoid. Recommend MRI with contrast for further characterization. Moderate microangiopathy. No intracranial bleed Subsequently Case discussed with neurosurgeon Dr. Stauffer recommended to admit the patient for further monitoring. Daily clinical course: 07/19/2021; Follow MRI with and without contrast Follow neurosurgery evaluation recommendation Discharge planning per case management 07/20/21: Neurosurgery evaluated the patient reviewed the MRI .No further NSGY intervention recommended at this time. Advised the patient patient to follow up as needed in outpatient neurosurgery clinic. Wait on PT eval and case management for discharge planning MRI brain without and with contrast; Large cyst in the area of encephalomalacia in the left frontal lobe is unchanged dating back to 03/30/2019 this most likely an arachnoid cyst 07/21/21: Patient neurosurgery to be discharged home with outpatient follow-up. Disposition: HOME HEALTH CARE SERVICE Final Discharge Diagnosis (Prints w/discharge instructions): --Cyst of central nervous system, chronic. --Developmental delay/mental retardation. --Acute metabolic encephalopathy. --Severe protein calorie malnutrition Time spent for discharge: 34 minutes Core Measure Documentation - Palliative Care Palliative Care/ Comfort Measures: Not Applicable - Core Measures Any of the following diagnoses?: none Exam - Physical Exam Narrative exam: General appearance: Present: no acute distress, mal-nourished elderly WF - EENT Eyes: Present: PERRL. Absent: scleral icterus - Neck Neck: Present: supple, normal ROM - Respiratory Respiratory effort: normal Respiratory: bilateral: diminished, negative: rales, rhonchi, wheezing - Cardiovascular Rhythm: regular Heart Sounds: Present: S1 & S2 - Extremities Extremities: abnormal (Contracted) - Abdominal General gastrointestinal: soft, non-tender, non-distended, normal bowel sounds - Integumentary Integumentary: Present: clear, warm - Psychiatric Psychiatric: other (Noncommunicative) - Neurologic Neurologic: other (Noncommunicative, developmental delay) - Constitutional Vitals: Temp Pulse Resp BP Pulse Ox 97.8 F 100 H 14 145/69 94 07/21/21 11:08 07/21/21 11:08 07/21/21 11:08 07/21/21 11:08 07/21/21 11:08 Plan Activity: advance as tolerated Weight Bearing Status: Weight Bear as Tolerated Diet: other (pureed diet) Follow up with: ANALISA HUGO MD [Primary Care Provider] - 3-5 Days
== END 2021-07-21 17:48 | disposition home health service (06) | DRG 70 ==
LOC: ED 19:05 → 4A 07-18 01:33 → OBSVTOIN 07-19 09:17
PROVIDERS: ADMIT Hospitalist; ATTEND Internal Medicine
DX: G93.41 Metabolic encephalopathy (principal); E43 Unspecified severe protein-calorie malnutrition; Z68.1 Body mass index [BMI] 19.9 or less, adult; G96.89 Other specified disorders of central nervous system; F79 Unspecified intellectual disabilities; G93.0 Cerebral cysts; G40.909 Epilepsy, unspecified, not intractable, without status epilepticus; Z20.822 Contact with and (suspected) exposure to COVID-19; I34.0 Nonrheumatic mitral (valve) insufficiency
CPT/HCPCS: 36415; 70450; 70553; 71045; 80053; 80061; 80184; 80185; 80186; 80320; 81001; 82140; 82550; 82962; 83735; 84443; 84484; 85025; 85610; 85730; 86850; 86900; 86901; 87086; 93005; 93306; 94640; G0378; A9575; G0480; J1630; J1953; J2060; J7042